=== PATIENT | female | born 1990 | race American Indian/Alaskan Native ===

== ENCOUNTER 2024-12-01 00:55 | Emergency (ER) | payer MEDICAID, SELFPAY ==
[2024-12-01] VITALS (8 sets, daily range): BP systolic 95–118; BP diastolic 66–89; PULSE 86–126; RESP 18; TEMP 36.7–37.2; O2SAT 95–100; BMI 22.7
--- NOTE | 2024-12-01 01:03 | XR_ITS ---
Examination: CT chest with intravenous contrast CT abdomen with intravenous contrast CT pelvis with intravenous contrast 2-D coronal and sagittal reconstructions Time of exam: December 01, 2024 at 0604 hrs. Indications: Coughing congestion abdominal pain shortness of breath fever this week CTDI: vol (mGy) : 7.1 DLP: (mGycm): 502 Technique: Multiple axial images of the chest, abdomen and pelvis with intravenous contrast, 3.0 mm slice thickness. Images obtained post intravenous injection Isovue 370 60 cc. 2-D sagittal and coronal reconstructions. Low dose protocols were performed. One or more of the following dose reduction techniques were used; automated exposure control, adjustment of the mA and/or KV according to patient size, use of iterative reconstruction technique. Findings: No thoracic aortic aneurysmal dilatation Main pulmonary artery segment 33 mm No paratracheal tracheobronchial or bronchopulmonary adenopathy No pneumonia or pulmonary edema No pleural disease No focal liver lesions or biliary tract dilatation Distended gallbladder Spleen is not enlarged Fluid distended stomach No pancreatic mass Mild right hydronephrosis with wall thickening of the pelvicalyceal system and proximal ureter There is marked patient motion which degrades image quality in the abdomen No bowel obstruction Large soft tissue infection right flank extending to the right hip with gross bone destruction involving the right femoral head and acetabulum as well as osteomyelitis right ischium with adjacent soft tissue ulcer Soft tissue infection again noted posterior to the sacrum and coccyx with bone destruction distal sacrum and coccygeal segments This alteration infection extends to the posterior margin of the anus Diffuse soft tissue infection also involves the left ischium, osteomyelitis Marked thickening of urinary bladder wall Again noted bone destruction involving T12 and L1 Impression: No pneumonia or pulmonary edema or pleural disease Distended gallbladder, recommend gallbladder sonography follow-up Right pyelonephritis Again noted large soft tissue foci of infection posterior and lateral to the right hip and posterior to the right ischium with marked osteomyelitis right femoral head right acetabulum right ischium Again noted soft tissue ulcer and infection posterior to the sacrum extending to the posterior margin of the anus with destruction distal sacrum and coccygeal segments and osteomyelitis left ischium Again noted bone destruction T12-L1 consistent with osteomyelitis
[2024-12-01 02:27] LABS: Lactate (Lactic Acid) 1.2 mMol/L (0.4-2.0)
[2024-12-01 02:28] LABS: Basophils % (Auto) 1 % (0-2.5); Eosinophils # (Auto) 0.3 Thou/mm3 (0.0-0.5); Eosinophils % (Auto) 4 % (0-10); Hematocrit 31.1 % (36.0-46.0); Hemoglobin 9.7 g/dL (12.0-16.0); Immature Granulocytes % (Auto) 0 % (0-0); Immature Granulocytes Auto 0.01 Thou/mm3 (0.00-0.00); Lymphocytes # (Auto) 2.3 Thou/mm3 (1.0-4.8); Lymphocytes % (Auto) 31 % (10-50); Mean Corpuscular HGB Conc 31.2 g/dl (31.0-37.0); Mean Corpuscular Volume 74 fL (80-100); Monocytes # (Auto) 0.4 Thou/mm3 (0.0-0.8); Monocytes % (Auto) 6 % (0-12); Neutrophils # (Auto) 4.4 Thou/mm3 (1.8-7.7); Neutrophils % (Auto) 59 % (37-80); Nucleated Red Blood Cell % 0 /100 WBC (0); Platelet Count 661 Thou/mm3 (140-440); RDW Standard Deviation 50.7 fL (36.4-46.3); Red Blood Count 4.22 Miln/mm3 (4.00-5.20); White Blood Count 7.5 Thou/mm3 (3.6-11.0)
[2024-12-01] MEDS: ONDANSETRON INJ 2 MG/ML INJ 2 ML 4 MG IV (02:48)
[2024-12-01] MEDS: MORPHINE SULF INJ 10 MG/ML VIAL 4 MG IVP (02:49)
[2024-12-01] MEDS: KETOROLAC INJ 30 MG/ML VIAL IVP ×2 (02:50→10:33)
[2024-12-01] MEDS: SODIUM CHLORIDE 0.9% 1000 ML 1,000 ML 999 ML IV (02:50)
--- NOTE | 2024-12-01 03:18 | PD.EDFEVER ---
ED Fever RME/HPI General Chief Complaint: Fever Stated Complaint: WOUND INFECTION, FEVER Time Seen by Provider: 12/01/24 01:30 Arrival date/time: 12/01/24 00:55 RME / HPI RME / HPI Narrative: This section includes all my notes and documentations, including HPI, PE, and ED course. Brent Antunez MD HPI: 34-year-old female with paraplegia presents with fever (over 104 at home) and worsening pressure ulcers with redness and warmth with chills and bodyaches and malaise. No cough or congestion. No chest pain or shortness of breath. No other complaints. ROS: All negative except as documented in HPI. Physical Exam: General: Alert and oriented. No acute distress. Eyes: Conjunctivae and lids clear. ENT: No nasal congestion. Pharynx normal. Tympanic membrane normal bilaterally. Neck: Supple. Heart: Sinus tachycardia noted. Lungs: No respiratory distress. Good air movement. No rhonchi, wheezing, rales. Abdomen: Soft and nontender. Legs: No clubbing, cyanosis, edema. Skin: Warm and dry. Multiple decubitus ulcers noted in the sacral and hip areas, varying size and shape and depth. With erythema and edema and calor. Neuro: Alert and oriented X 3. Complete diagnostic tests pending. Treatment here included IV fluid and oral KCl and Rocephin and Vancomycin. At 6 AM on 12/01/2024, the care of the patient was transferred to Dr. Chong. Brent Antunez MD Related Data Home Medications ?Medication ?Instructions ?Recorded ?Confirmed doxycycline hyclate 100 mg capsule 100 mg PO BID 04/23/24 04/23/24 Previous Rx's ?Medication ?Instructions ?Recorded levofloxacin 750 mg tablet 750 mg PO QDAY #7 tabs 04/27/24 cephalexin 500 mg capsule 500 mg PO TID #21 caps 08/22/24 Allergies Allergy/AdvReac Type Severity Reaction Status Date / Time latex Allergy Severe Blister Verified 12/01/24 01:44 Sulfa (Sulfonamide Allergy Severe Rash Verified 12/01/24 01:44 Antibiotics) Course Quality Measures none Orders Category Date Time Status Bedside COVID-19 Antigen Test NOW Care 12/01/24 01:02 Active Bedside Influenza A&B Antigen Test NOW Care 12/01/24 01:[address] Screening NOW Care 12/01/24 01:03 Active Saline [Insert IV] NOW Care 12/01/24 01:02 Active Straight [In and Out Catheter] X1 Care 12/01/24 01:[address] chest abdomen pelvis w Stat Exams 12/01/24 01:03 Ordered Blood Culture (Lab) Stat Lab 12/01/24 02:47 Received CBC Stat Lab 12/01/24 02:00 Completed CMP [Comprehensive Metabolic Panel] Stat Lab 12/01/24 02:00 Completed CRP [C-Reactive Protein] Stat Lab 12/01/24 02:00 Completed ESR [Sed Rate (ESR)] Stat Lab 12/01/24 02:00 Completed HCG Qualitative,Urine Stat Lab 12/01/24 04:28 Completed HCG,Qualitative Serum Stat Lab 12/01/24 02:00 Completed Lactate (Lactic Acid) Stat Lab 12/01/24 02:00 Completed Magnesium Stat Lab 12/01/24 02:00 Completed Procalcitonin Stat Lab 12/01/24 02:00 Completed TSH [Thyroid Stimulating Hormone] Stat Lab 12/01/24 02:00 Completed Troponin I Stat Lab 12/01/24 02:00 Completed UA, C/S IF [Urinalysis, C/S if Indicated] Stat Lab 12/01/24 04:28 Completed Urine Culture Stat Lab 12/01/24 04:28 Received KCL 10% Liq UDC 15 ML Med 12/01/24 03:44 Discontinued 40 meq PO X1 ONE Ketorolac Inj [Toradol Inj] Med 12/01/24 01:02 Discontinued 30 mg IVP X1 ONE Lidocaine Jelly 2% Urojet [Xylocaine Jelly 2% Urojet] Med 12/01/24 04:12 Discontinued See Dose Instructions TOP X1 ONE Morphine Inj Med 12/01/24 01:02 Discontinued 4 mg IVP X1 ONE Ondansetron Inj [Zofran Inj] Med 12/01/24 01:02 Discontinued 4 mg IV X1 ONE Sodium Chloride 0.9% 1000 ml [Ns] 1,000 ml Med 12/01/24 01:02 Discontinued IV 999 mls/hr Vancomycin Inj 2,000 mg Med 12/01/24 04:10 Active Sodium Chloride 0.9% 500 ml [Ns] 500 ml IV X1 cefTRIAXone [Rocephin] Med 12/01/24 04:29 Discontinued 1,000 mg .ROUTE .STK-MED ONE cefTRIAXone [Rocephin] 1,000 mg Med 12/01/24 04:09 Discontinued Sodium Chloride 0.9% (Partial) [NS (Partial)] 50 ml IV STAT cefTRIAXone [Rocephin] 1,000 mg Med 12/01/24 04:17 Discontinued Sodium Chloride 0.9% (Partial) [NS (Partial)] 50 ml IV X1 Vital Signs Vital signs: Vital Signs Blood Pressure 109/66 12/01/24 01:35 Pulse Oximetry (%) 100 12/01/24 01:35 Fever Patient data External records reviewed:: [facility] previous records and EMS form Clinical information provided by:: patient, EMS and spouse Social determinants that could affect healthcare access:: substance use Patient has the following chronic illnesses:: Paraplegia How is presenting disease/condition affected by chronic disease/condition?: exacerbated by Evaluation data The following diagnostics were reviewed and interpreted by me:: lab results and radiology exam(s) Lab and/or radiology exams considered but not ordered:: None Interpretation Summary: Complete diagnostics pending Medications / Prescriptions Medications or Prescriptions considered but not ordered:: None Medication administrations:: Medication Administration History Vancomycin HCl 2,000 mg/ (Sodium Chloride) 500 mls @ 150 mls/hr IV X1 ONE Stop: 12/01/24 07:29 Last Admin: 12/01/24 04:15 Dose: 150 mls/hr Documented By: ADOLPH Discontinued Medications Ceftriaxone Sodium (Ceftriaxone Sod Inj 1,000 Mg Vial) Confirm Administered Dose 1,000 mg .ROUTE .STK-MED ONE Stop: 12/01/24 04:30 Last Admin: 12/01/24 05:01 Dose: Not Given Documented By: ADOLPH Non-Admin Reason: Duplicate Medication on eMAR Sodium Chloride (Ns) 1,000 mls @ 999 mls/hr IV .Q1H1M ONE Stop: 12/01/24 02:02 Last Infusion: 12/01/24 04:33 Dose: Infused Documented By: Admin: 12/01/24 02:50 Dose: 999 mls/hr Documented By: DIANE Ceftriaxone Sodium 1,000 mg/ (Sodium Chloride) 50 mls @ 100 mls/hr IV STAT STA Stop: 12/01/24 04:38 Last Admin: 12/01/24 04:33 Dose: Not Given Documented By: ISIDORO Non-Admin Reason: Discontinued Ceftriaxone Sodium 1,000 mg/ (Sodium Chloride) 50 mls @ 100 mls/hr IV X1 ONE Stop: 12/01/24 04:46 Ketorolac Tromethamine (Ketorolac Inj 30 Mg/Ml Vial) 30 mg IVP X1 ONE Stop: 12/01/24 01:03 Last Admin: 12/01/24 02:50 Dose: 30 mg Documented By: DIANE Lidocaine HCl (Lidocaine Jelly 2% (Urojet) 10 Ml Tube) 0 ml TOP X1 ONE Stop: 12/01/24 04:13 Last Admin: 12/01/24 04:15 Dose: 10 ml Documented By: ADOLPH Morphine Sulfate (Morphine Sulf Inj 10 Mg/Ml Vial) 4 mg IVP X1 ONE Stop: 12/01/24 01:03 Last Admin: 12/01/24 02:49 Dose: 4 mg Documented By: DIANE Ondansetron HCl (Ondansetron Inj 2 Mg/Ml Inj 2 Ml) 4 mg IV X1 ONE; Protocol Stop: 12/01/24 01:03 Last Admin: 12/01/24 02:48 Dose: 4 mg Documented By: DIANE Potassium Chloride (Potassium Chloride 10% 20 Meq/15 Ml Udc) 40 meq PO X1 ONE Stop: 12/01/24 03:45 Last Admin: 12/01/24 04:15 Dose: 40 meq Documented By: ADOLPH Treatment here included IV fluid and Rocephin and vancomycin and oral KCl. Consultations Consultation(s) initiated? (list below): No Diagnosis Fever Differential Diagnosis: cellulitis, fever of unknown origin, community acquired pneumonia, pyelonephritis, sepsis and other (Osteomyelitis) Most likely diagnosis given after review of the tests above:: Complete diagnostics pending Admission Indicated Admission indicated?: not indicated Explain why admission is indicated or not indicated:: Complete diagnostics pending Admission Request Was there a request for admission?: No Disposition Plan Disposition Plan: other (specify) (Care of the patient was transferred to Dr. Chong) Discharge Plan Prescriptions/Referrals Prescriptions/Med Rec: No Action doxycycline hyclate 100 mg capsule 100 mg PO BID levofloxacin 750 mg tablet 750 mg PO QDAY Qty: 7 0RF cephalexin 500 mg capsule 500 mg PO TID Qty: 21 0RF Referrals: Emanuel Watson MD [Primary Care Provider] - In 1 week Problem List Clinical Impression: Decubitus ulcers, UTI (urinary tract infection) Patient/Caregiver Discharge Instructions Print Language: Montserratian
[2024-12-01 03:22] LABS: Sed Rate (ESR) 70 mm/hr (0-20)
[2024-12-01 03:39] LABS: Alanine Aminotransferase 11 U/L (10-49); Albumin, Serum 3.3 gm/dL (3.5-5.0); Albumin/Globulin Ratio 0.8 (1.2-2.2); Alkaline Phosphatase 157 U/L (46-116); Anion Gap 6 (7-16); Aspartate Amino Transferase 17 U/L (0-34); BUN/Creatinine Ratio 30 Ratio (12-20); Bilirubin,Total 0.2 mg/dL (0.3-1.2); Blood Urea Nitrogen 9 mg/dL (9-23); C-Reactive Protein 4.8 mg/dL (0.0-0.9); Calcium 8.4 mg/dL (8.3-10.6); Carbon Dioxide 28.7 mMol/L (20.0-31.0); Chloride 102 mMol/L (98-107); Creatinine (Component) 0.3 mg/dL (0.6-1.3); Estimated Creatinine Clearance 259.4 mL/min (>60); Globulin 4.2 gm/dL (2.3-3.5); Glucose 81 mg/dL (74-106); Magnesium 1.8 mg/dL (1.6-2.6); Osmolality,Calculated 271 (275-295); Potassium 3.2 mMol/L (3.4-5.1); Procalcitonin 0.09 ng/ml (0.0-0.49); Sodium 137 mMol/L (136-145); Thyroid Stimulating Hormone 1.72 uIU/mL (0.55-4.78); Total Protein 7.5 gm/dL (5.7-8.2); Troponin I < 0.002 ng/mL (0.0-0.045); eGFR > 60 See Note
[2024-12-01 03:54] LABS: HCG,Qualitative Serum Negative
[2024-12-01] MEDS: LIDOCAINE JELLY 2% (Urojet) 10 ML TUBE TOP (04:15)
[2024-12-01] MEDS: Vancomycin Inj 2,000 MG in SODIUM CHLORIDE 0.9% 500 ML 500 ML 150 MG IV (04:15)
[2024-12-01] MEDS: POTASSIUM CHLORIDE 10% 20 MEQ/15 ML UDC 40 MEQ PO (04:15)
[2024-12-01 05:04] LABS: Collection Type, Urine Clean Catch; Squamous Epithelial Cell,Urine 0 /hpf (0-5)
[2024-12-01 05:21] LABS: Bilirubin,Urine Negative (Negative); Blood,Urine 1+ (Negative); Color,Urine Yellow (Lt Yel-Yel); Glucose, Urine Negative (Negative); Ketones,Urine Negative (Negative); Leukocyte Esterase,Urine Positive (Negative); Nitrite,Urine Positive (Negative); Protein,Urine 2+ (Neg - Trace); RBC,Urine 55 /hpf (0-3); Specific Gravity,Urine 1.025 (1.001-1.035); WBC,Urine 684 /hpf (0-5)
[2024-12-01 05:22] LABS: Clarity,Urine Turbid (Clear/Hazy); Culture Indicated,Urine Yes
[2024-12-01 05:25] LABS: HCG Qualitative,Urine Negative
--- NOTE | 2024-12-01 07:35 | PC.NURSE ---
pt resting in bed in no apparent distress at this time. pt states that she has a home health nurse that comes to her house to take care of her wounds and states that she does not want to be admitted. informed dr yung. dr yung will come to speak with pt
--- NOTE | 2024-12-01 07:55 | PD.EDADDENDU ---
Emergency Room Addendum <Staci Ponce - Last Filed: 12/01/24 08:33> Addendum Narrative: 0600: Care assumed from Dr. Antunez, the previous shift emergency physician. I will assume the care of the patient at this time, pending CT chest/abdomen/pelvis and final disposition. Please refer to the emergency department record for history and examination from initial visit.? EMS notes reviewed by me. Nursing notes reviewed by me. Vital signs reviewed by me. [place] [facility] medical records reviewed by me. RADIOLOGY Ordering Physician: Brent Antunez MD Date of Service: 12/01/24 Procedure(s): CT chest abdomen pelvis w Accession Number(s): [id number] cc: Emanuel Watson MD; Brent Antunez MD; Jose D Lowery MD~ Examination: CT chest with intravenous contrast CT abdomen with intravenous contrast CT pelvis with intravenous contrast 2-D coronal and sagittal reconstructions Time of exam: December 01, 2024 at 0604 hrs. Indications: Coughing congestion abdominal pain shortness of breath fever this week CTDI: vol (mGy) : 7.1 DLP: (mGycm): 502 Technique: Multiple axial images of the chest, abdomen and pelvis with intravenous contrast, 3.0 mm slice thickness. Images obtained post intravenous injection Isovue 370 60 cc. 2-D sagittal and coronal reconstructions. Low dose protocols were performed. One or more of the following dose reduction techniques were used; automated exposure control, adjustment of the mA and/or KV according to patient size, use of iterative reconstruction technique. Findings: No thoracic aortic aneurysmal dilatation Main pulmonary artery segment 33 mm No paratracheal tracheobronchial or bronchopulmonary adenopathy No pneumonia or pulmonary edema No pleural disease No focal liver lesions or biliary tract dilatation Distended gallbladder Spleen is not enlarged Fluid distended stomach No pancreatic mass Mild right hydronephrosis with wall thickening of the pelvicalyceal system and proximal ureter There is marked patient motion which degrades image quality in the abdomen No bowel obstruction Large soft tissue infection right flank extending to the right hip with gross bone destruction involving the right femoral head and acetabulum as well as osteomyelitis right ischium with adjacent soft tissue ulcer Soft tissue infection again noted posterior to the sacrum and coccyx with bone destruction distal sacrum and coccygeal segments This alteration infection extends to the posterior margin of the anus Diffuse soft tissue infection also involves the left ischium, osteomyelitis Marked thickening of urinary bladder wall Again noted bone destruction involving T12 and L1 Impression: No pneumonia or pulmonary edema or pleural disease Distended gallbladder, recommend gallbladder sonography follow-up Right pyelonephritis Again noted large soft tissue foci of infection posterior and lateral to the right hip and posterior to the right ischium with marked osteomyelitis right femoral head right acetabulum right ischium Again noted soft tissue ulcer and infection posterior to the sacrum extending to the posterior margin of the anus with destruction distal sacrum and coccygeal segments and osteomyelitis left ischium Again noted bone destruction T12-L1 consistent with osteomyelitis Dictated By: Jose D Lowery MD Signed By: <Electronically signed by Jose D Lowery MD in [place]>12/01/24 0730 <Erik Chong MD - Last Filed: 12/01/24 08:33> Addendum Narrative: 0600: Care assumed from Dr. Antunez, the previous shift emergency physician. I will assume the care of the patient at this time, pending CT chest/abdomen/pelvis and final disposition. Please refer to the emergency department record for history and examination from initial visit.? EMS notes reviewed by me. Nursing notes reviewed by me. Vital signs reviewed by me. [facility] medical records reviewed by me. RADIOLOGY Ordering Physician: Brent Antunez MD Date of Service: 12/01/24 Procedure(s): CT chest abdomen pelvis w Accession Number(s): [id number] cc: Emanuel Watson MD; Brent Antuenz MD; Jose D Lowery MD~ Examination: CT chest with intravenous contrast CT abdomen with intravenous contrast CT pelvis with intravenous contrast 2-D coronal and sagittal reconstructions Time of exam: December 01, 2024 at 0604 hrs. Indications: Coughing congestion abdominal pain shortness of breath fever this week CTDI: vol (mGy) : 7.1 DLP: (mGycm): 502 Technique: Multiple axial images of the chest, abdomen and pelvis with intravenous contrast, 3.0 mm slice thickness. Images obtained post intravenous injection Isovue 370 60 cc. 2-D sagittal and coronal reconstructions. Low dose protocols were performed. One or more of the following dose reduction techniques were used; automated exposure control, adjustment of the mA and/or KV according to patient size, use of iterative reconstruction technique. Findings: No thoracic aortic aneurysmal dilatation Main pulmonary artery segment 33 mm No paratracheal tracheobronchial or bronchopulmonary adenopathy No pneumonia or pulmonary edema No pleural disease No focal liver lesions or biliary tract dilatation Distended gallbladder Spleen is not enlarged Fluid distended stomach No pancreatic mass Mild right hydronephrosis with wall thickening of the pelvicalyceal system and proximal ureter There is marked patient motion which degrades image quality in the abdomen No bowel obstruction Large soft tissue infection right flank extending to the right hip with gross bone destruction involving the right femoral head and acetabulum as well as osteomyelitis right ischium with adjacent soft tissue ulcer Soft tissue infection again noted posterior to the sacrum and coccyx with bone destruction distal sacrum and coccygeal segments This alteration infection extends to the posterior margin of the anus Diffuse soft tissue infection also involves the left ischium, osteomyelitis Marked thickening of urinary bladder wall Again noted bone destruction involving T12 and L1 Impression: No pneumonia or pulmonary edema or pleural disease Distended gallbladder, recommend gallbladder sonography follow-up Right pyelonephritis Again noted large soft tissue foci of infection posterior and lateral to the right hip and posterior to the right ischium with marked osteomyelitis right femoral head right acetabulum right ischium Again noted soft tissue ulcer and infection posterior to the sacrum extending to the posterior margin of the anus with destruction distal sacrum and coccygeal segments and osteomyelitis left ischium Again noted bone destruction T12-L1 consistent with osteomyelitis Dictated By: Jose D Lowery MD Signed By: <Electronically signed by Jose D Lowery MD in [place]>12/01/24 0730 The patient was signed out to me from Dr. Antunez at 6:[address] chest abdomen and pelvic. And CT result is posted above. Dr. Antunez, my predecessor has put the patient on IV antibiotics. I look at the CT abdomen myself, I do not see any significant stranding around the kidneys that may signify pyelonephritis. In fact the UA showing 694 WBC but no bacteria. She has an indwelling Madrigal that was 3 months old. The patient request that we change the Madrigal for her, change dressing on her decubitus ulcers, put on doxycycline that she used to take. She absolutely and adamantly deny admission. She just want to go back to the shelter. And she intended to sign out AGAINST MEDICAL ADVICE. She is alert awake oriented x 4 GCS of 15. Diagnosis: AMA Chronic decubitus ulcers with osteomyelitis of adjacent bones Indwelling Madrigal Condition: Stable I will write her prescription for doxycycline. The patient will need to be follow-up with wound care. Wound care referral can be done by her PMD. The patient is signed out AGAINST MEDICAL ADVICE.
[2024-12-01] MEDS: cefTRIAXone 1,000 MG in SODIUM CHLORIDE 0.9% (P) 50 ML 100 MG IV (10:35)
--- NOTE | 2024-12-01 10:40 | PC.NURSE ---
wounds to bilateral hip and coccyx area cleaned and new dressing applied. wound to left foot heal area cleaned and new dressing applied
== END 2024-12-01 11:40 | disposition left against medical advice (07) ==
PROVIDERS: Emergency Medicine; Emergency Provider Emergency Medicine; PCP Family Medicine
DX: L89.209 Pressure ulcer of unspecified hip, unspecified stage (principal); L89.159 Pressure ulcer of sacral region, unspecified stage; N39.0 Urinary tract infection, site not specified; Z53.29 Procedure and treatment not carried out because of patient's decision for other reasons; M86.9 Osteomyelitis, unspecified
CPT/HCPCS: 51702; 36415; 71260; 74177; 80053; 81001; 81025; 83605; 83735; 84145; 84443; 84484; 84703; 85025; 85652; 86140; 87040; 87077; 87086; 87186; 87400; 87811; 96365; 96366; 96367; 96375; 99285; A4649; J0696; J1885; J2270; J2405; J3371; J7030; J7040; J7050; Q9967; A9270

== ENCOUNTER 2024-12-29 00:20 | Emergency (ER) | payer MEDICAID, SELFPAY ==
[2024-12-29 00:26] VITALS: BMI 22.7
[2024-12-29 00:32] VITALS: BP 109/77; PULSE 126; RESP 20; TEMP 38.2; O2SAT 100
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
[2024-12-29 01:30] LABS: Lactate (Lactic Acid) 1.9 mMol/L (0.4-2.0)
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
[2024-12-29 01:31] VITALS: TEMP 38.2
[2024-12-29] MEDS: ACETAMINOPHEN 500 MG TABLET 1000 MG PO (01:31)
[2024-12-29] MEDS: SODIUM CHLORIDE 0.9% 1000 ML 1,000 ML 999 ML IV (01:32)
[2024-12-29 01:34] LABS: Basophils % (Auto) 0 % (0-2.5); Eosinophils # (Auto) 0.2 Thou/mm3 (0.0-0.5); Eosinophils % (Auto) 2 % (0-10); Hematocrit 30.6 % (36.0-46.0); Hemoglobin 9.2 g/dL (12.0-16.0); Immature Granulocytes % (Auto) 0 % (0-0); Immature Granulocytes Auto 0.05 Thou/mm3 (0.00-0.00); Lymphocytes # (Auto) 1.6 Thou/mm3 (1.0-4.8); Lymphocytes % (Auto) 14 % (10-50); Mean Corpuscular HGB Conc 30.1 g/dl (31.0-37.0); Mean Corpuscular Hemoglobin 21.7 pg (25.0-35.0); Mean Corpuscular Volume 72 fL (80-100); Monocytes # (Auto) 0.7 Thou/mm3 (0.0-0.8); Monocytes % (Auto) 6 % (0-12); Neutrophils # (Auto) 9.1 Thou/mm3 (1.8-7.7); Neutrophils % (Auto) 78 % (37-80); Nucleated Red Blood Cell % 0 /100 WBC (0); Platelet Count 767 Thou/mm3 (140-440); RDW Standard Deviation 48.6 fL (36.4-46.3); Red Blood Count 4.23 Miln/mm3 (4.00-5.20); White Blood Count 11.7 Thou/mm3 (3.6-11.0)
[2024-12-29 01:52] VITALS: PULSE 125; PULSE 126; RESP 100; RESP 20
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
[2024-12-29 02:05] LABS: Alanine Aminotransferase 26 U/L (10-49); Albumin, Serum 3.3 gm/dL (3.5-5.0); Albumin/Globulin Ratio 0.7 (1.2-2.2); Alkaline Phosphatase 237 U/L (46-116); Anion Gap 7 (7-16); Aspartate Amino Transferase 38 U/L (0-34); BUN/Creatinine Ratio 18 Ratio (12-20); Bilirubin,Total 0.2 mg/dL (0.3-1.2); Blood Urea Nitrogen 11 mg/dL (9-23); Calcium 8.3 mg/dL (8.3-10.6); Calcium (Corrected) 8.9 mg/dL (8.5-10.1); Carbon Dioxide 25.8 mMol/L (20.0-31.0); Chloride 99 mMol/L (98-107); Creatinine (Component) 0.6 mg/dL (0.6-1.3); Estimated Creatinine Clearance 129.7 mL/min (>60); Globulin 4.9 gm/dL (2.3-3.5); Glucose 96 mg/dL (74-106); Osmolality,Calculated 263 (275-295); Potassium 4.1 mMol/L (3.4-5.1); Sodium 132 mMol/L (136-145); Total Protein 8.2 gm/dL (5.7-8.2); eGFR > 60 See Note
[2024-12-29 02:26] LABS: INR 1.1 (0.9-1.3); Partial Thromboplastin Time 29.4 Seconds (22.0-36.0); Prothrombin Time 12.1 Seconds (9.0-12.2)
[2024-12-29 02:30] LABS: B-Type Natriuretic Peptide 20 pg/mL (0-100)
[2024-12-29 02:31] LABS: LDH (Lactate Dehydrogenase) 283 U/L (120-246); Lipase 21 U/L (12-53); Magnesium 1.8 mg/dL (1.6-2.6); Phosphorous 4.5 mg/dL (2.4-5.1); Troponin I < 0.002 ng/mL (0.0-0.045)
[2024-12-29] MEDS: LIDOCAINE JELLY 2% (Urojet) 10 ML TUBE TOP (02:35)
[2024-12-29] MEDS: MORPHINE SULF INJ 10 MG/ML VIAL 4 MG IVP (03:03)
[2024-12-29] MEDS: ONDANSETRON INJ 2 MG/ML INJ 2 ML 4 MG IV (03:03)
[2024-12-29] MEDS: cefTRIAXone 1,000 MG in SODIUM CHLORIDE 0.9% (Popper) 50 ML 100 MG IV (03:03)
[2024-12-29] MEDS: SODIUM CHLORIDE 0.9% 1000 ML 1,848 ML 1848 ML IV (03:03)
[2024-12-29 03:13] VITALS: TEMP 36.9
[2024-12-29 03:15] VITALS: BP 108/71; PULSE 117; RESP 20; TEMP 36.9; O2SAT 99
[2024-12-29 03:58] LABS: Collection Type, Urine Catheter
[2024-12-29 04:22] LABS: Bilirubin,Urine Negative (Negative); Blood,Urine 1+ (Negative); Color,Urine Yellow (Lt Yel-Yel); Glucose, Urine Negative (Negative); Ketones,Urine Negative (Negative); Leukocyte Esterase,Urine Positive (Negative); Nitrite,Urine Positive (Negative); PH,Urine 6.5 (5.0-7.0); Protein,Urine 1+ (Neg - Trace); RBC,Urine 38 /hpf (0-3); Specific Gravity,Urine 1.017 (1.001-1.035); Squamous Epithelial Cell,Urine 1 /hpf (0-5); Urobilinogen,Urine Negative mg/dL (0.0-1.0); WBC,Urine 1144 /hpf (0-5)
[2024-12-29 04:26] LABS: Clarity,Urine Turbid (Clear/Hazy)
[2024-12-29 04:27] LABS: HCG Qualitative,Urine Negative
[2024-12-29 06:05] VITALS: BP 105/75; PULSE 94; RESP 18; TEMP 36.9; O2SAT 100
== END 2024-12-29 06:05 | disposition home or self-care (01) ==
PROVIDERS: Physician Assistant; Emergency Provider Emergency Medicine
DX: Z46.6 Encounter for fitting and adjustment of urinary device (principal); N39.0 Urinary tract infection, site not specified; I10 Essential (primary) hypertension; G82.20 Paraplegia, unspecified; N39.498 Other specified urinary incontinence
CPT/HCPCS: 51702; 36415; 80053; 81001; 81025; 83605; 83615; 83690; 83735; 83880; 84100; 84145; 84484; 85025; 85610; 85730; 87040; 87077; 87086; 87186; 96361; 96365; 96375; 99291; J0696; J2270; J2405; J7030; J7050; A9270

== ENCOUNTER 2025-01-13 03:15 | Inpatient (IN) | payer MEDICAID, SELFPAY ==
[2025-01-13] VITALS (12 sets, daily range): BP systolic 94–120; BP diastolic 60–85; PULSE 94–116; RESP 14–21; TEMP 36.1–37.3; O2SAT 97–100; BMI 22.7
--- NOTE | 2025-01-13 03:44 | PC.NURSE ---
pt arrives in her WC with her mother. appears lethargic.appears sedated. Pt Admits to using fentanyl today. States 6 hrs ago however pt is nodding. VS checked and are stable. bender machine Alys is aware.
--- NOTE | 2025-01-13 05:10 | PD.EDRME ---
Rapid Medical Screening Exam RME Arrival date/time: 01/13/25 03:15 34 year old female present to ED for c/o of worsen wounds on back I have greeted and performed a focused initial assessment of this patient. A comprehensive ED assessment and evaluation of the patient, analysis of all test results, and completion of the medical decision making process will be conducted by additional ED providers. Chief Complaint: Wound Recheck / Suture Removal Time Seen by Provider: 01/13/25 03:18 Vital signs: Vital Signs Temperature 99.2 F 01/13/25 03:42 Pulse Rate 97 01/13/25 03:42 Respiratory Rate 14 01/13/25 03:42 Blood Pressure 113/73 01/13/25 03:42 Pulse Oximetry (%) 100 01/13/25 03:42 Oxygen Delivery Method Room Air 01/13/25 03:42
[2025-01-13 05:44] LABS: Lactate (Lactic Acid) 0.7 mMol/L (0.4-2.0)
[2025-01-13 05:49] LABS: Basophils % (Auto) 1 % (0-2.5); Eosinophils # (Auto) 0.1 Thou/mm3 (0.0-0.5); Eosinophils % (Auto) 1 % (0-10); Hematocrit 26.6 % (36.0-46.0); Immature Granulocytes % (Auto) 0 % (0-0); Immature Granulocytes Auto 0.02 Thou/mm3 (0.00-0.00); Lymphocytes # (Auto) 1.3 Thou/mm3 (1.0-4.8); Lymphocytes % (Auto) 19 % (10-50); Mean Corpuscular HGB Conc 30.8 g/dl (31.0-37.0); Mean Corpuscular Volume 68 fL (80-100); Monocytes # (Auto) 0.4 Thou/mm3 (0.0-0.8); Monocytes % (Auto) 6 % (0-12); Neutrophils # (Auto) 5.3 Thou/mm3 (1.8-7.7); Neutrophils % (Auto) 74 % (37-80); Nucleated Red Blood Cell % 0 /100 WBC (0); Platelet Count 746 Thou/mm3 (140-440); RDW Standard Deviation 46.5 fL (36.4-46.3); White Blood Count 7.2 Thou/mm3 (3.6-11.0)
[2025-01-13 05:52] LABS: Hemoglobin 8.2 g/dL (12.0-16.0)
[2025-01-13 06:00] LABS: Sed Rate (ESR) 92 mm/hr (0-20)
[2025-01-13 06:11] LABS: Alanine Aminotransferase 12 U/L (10-49); Albumin, Serum 3.1 gm/dL (3.5-5.0); Albumin/Globulin Ratio 0.6 (1.2-2.2); Alkaline Phosphatase 303 U/L (46-116); Anion Gap 7 (7-16); Aspartate Amino Transferase 12 U/L (0-34); BUN/Creatinine Ratio 18 Ratio (12-20); Bilirubin,Total 0.3 mg/dL (0.3-1.2); Blood Urea Nitrogen 7 mg/dL (9-23); C-Reactive Protein 9.1 mg/dL (0.0-0.9); Calcium 8.3 mg/dL (8.3-10.6); Carbon Dioxide 26.9 mMol/L (20.0-31.0); Chloride 101 mMol/L (98-107); Creatinine (Component) 0.4 mg/dL (0.6-1.3); Globulin 4.9 gm/dL (2.3-3.5); Glucose 98 mg/dL (74-106); Osmolality,Calculated 268 (275-295); Potassium 3.6 mMol/L (3.4-5.1); Sodium 135 mMol/L (136-145); eGFR > 60 See Note
[2025-01-13] MEDS: ONDANSETRON INJ 2 MG/ML INJ 2 ML 4 MG IV ×2 (07:26→11:06)
[2025-01-13] MEDS: MORPHINE SULF INJ 10 MG/ML VIAL 5 MG IVP ×2 (07:27→11:07)
--- NOTE | 2025-01-13 07:30 | PC.NURSE ---
PT HERE WITH C/O PAIN TO CHRONIC DECUBITUS TO COCCYX/BUTTOCKS. ONE LARGE OPEN WOUND TO COCCYX/BUTTOCKS WITH 2 AREAS OF HOLES NOTED. NO DRAINAGE AT THIS TIME
[2025-01-13] MEDS: VANCOMYCIN/NS 1 GM IVPB 200 ML IV ×3 (07:33→22:53)
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
[2025-01-13] MEDS: RINGERS LACTATED 1000 ML 1,000 ML 75 ML IV (11:05)
[2025-01-13] MEDS: PANTOPRAZOLE INJ 40 MG VIAL IVP (11:08)
[2025-01-13] MEDS: PIPER/TAZO 3.375 GM PREMIX 3.375 GM/50 ML BAG IV (11:11)
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
[2025-01-13] MEDS: RINGERS LACTATED 1000 ML 1,000 ML 999 ML IV (11:12)
--- NOTE | 2025-01-13 11:15 | PC.NURSE ---
LAB IN TO DRAW BLOOD AND PT REFUSED
--- NOTE | 2025-01-13 11:55 | XR_ITS ---
Examination: Venous duplex lower extremity sonogram, bilateral. Date and time of exam: January 13, 2025 1227 hours INDICATIONS: Severe bilateral leg swelling and pain beginning 2 months ago, nonhealing leg ulcers Technique: Multiple sonographic images of the deep venous system have been obtained. B-mode/2-D grayscale imaging of vascular structures and Doppler spectral analysis (waveforms) and color performed Both legs are examined. Findings: Normal deep venous system right lower extremity Patient would not permit assessment left superficial femoral popliteal perineal posterior tibial veins IMPRESSION: Normal right lower extremity deep venous system Essentially nondiagnostic left lower extremity deep venous system evaluation
--- NOTE | 2025-01-13 11:56 | XR_ITS ---
Examination: Foot, left, 3 views Technique: AP, oblique, lateral views foot, 3 views Date and time of exam: January 13, 2025 at 1255 hours Comparison 06/21/2022 INDICATIONS: Redness swelling and pain involving the foot one month FINDINGS: Severe osteopenia Cortical bone destruction distal fifth metatarsal No pathologic fracture IMPRESSION: Osteomyelitis distal fifth metatarsal, consider MRI left foot without contrast follow-up
--- NOTE | 2025-01-13 12:15 | PC.NURSE ---
REFUSING LAB DRAW AGAIN
[2025-01-13] MEDS: HYDROmorphone INJ 2 MG/ML VIAL 1 MG IVP ×3 (12:16→22:58)
--- NOTE | 2025-01-13 12:51 | PC.NURSE ---
patient refused remaining of ultrasound due to pain
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
[2025-01-13] MEDS: CEFEPIME INJ 2 GM in SODIUM CHLORIDE 0.9% (Popper) 50 ML IV ×2 (15:47→21:26)
[2025-01-13] MEDS: DULoxetine HCL 30 MG CAPSULE PO (15:47)
[2025-01-13] MEDS: SOD HYPOCHLORITE 1/4 STR 473 ML BTL IRRIG (21:04)
[2025-01-13] MEDS: ASCORBIC ACID 250 MG TABLET 500 MG PO (21:04)
[2025-01-13] MEDS: MIDODRINE 5 MG TABLET 10 MG PO (21:22)
[2025-01-13 21:58] LABS: Collection Type, Urine Clean Catch; Squamous Epithelial Cell,Urine 0 /hpf (0-5)
[2025-01-13 22:16] LABS: Bacteria,Urine Rare; Bilirubin,Urine Negative (Negative); Blood,Urine Negative (Negative); Clarity,Urine Clear (Clear/Hazy); Color,Urine Lt-Yellow (Lt Yel-Yel); Glucose, Urine Negative (Negative); Ketones,Urine Negative (Negative); Leukocyte Esterase,Urine Positive (Negative); Nitrite,Urine Negative (Negative); PH,Urine 7.5 (5.0-7.0); Protein,Urine Negative (Neg - Trace); RBC,Urine 6 /hpf (0-3); Specific Gravity,Urine 1.014 (1.001-1.035); WBC,Urine 138 /hpf (0-5)
[2025-01-14] VITALS (20 sets, daily range): BP systolic 105–121; BP diastolic 66–87; PULSE 60–103; RESP 14–99; TEMP 35.7–36.7; O2SAT 97–100; BMI 22.7
[2025-01-14 03:41] LABS: Amphetamine/Methamp Scrn,U Positive (Negative); Barbiturate Screen,Urine Negative (Negative); Benzodiazepines Screen,Urine Negative (Negative); Benzoylecgonine Screen, Ur Negative (Negative); Fentanyl Screen,Urine Positive (Negative); Opiate Screen,Urine Positive (Negative); THC Screen,Urine Negative (Negative)
[2025-01-14] MEDS: CEFEPIME INJ 2 GM in SODIUM CHLORIDE 0.9% (Popper) 50 ML IV ×3 (05:06→21:00)
--- NOTE | 2025-01-14 05:08 | PC.NURSE ---
Notify MD of pt's BP 107/68 and HR of 99. said to hold all P.O meds.
[2025-01-14] MEDS: HYDROmorphone INJ 2 MG/ML VIAL 1 MG IVP ×4 (05:17→19:38)
[2025-01-14 06:21] LABS: Misc Send Out* See Sep Rpt
[2025-01-14 06:28] LABS: Basophils % (Auto) 0 % (0-2.5); Eosinophils # (Auto) 0.1 Thou/mm3 (0.0-0.5); Eosinophils % (Auto) 1 % (0-10); Hematocrit 27.8 % (36.0-46.0); Immature Granulocytes % (Auto) 0 % (0-0); Immature Granulocytes Auto 0.02 Thou/mm3 (0.00-0.00); Lymphocytes # (Auto) 1.6 Thou/mm3 (1.0-4.8); Lymphocytes % (Auto) 24 % (10-50); Mean Corpuscular HGB Conc 30.6 g/dl (31.0-37.0); Mean Corpuscular Hemoglobin 21.3 pg (25.0-35.0); Mean Corpuscular Volume 70 fL (80-100); Monocytes # (Auto) 0.3 Thou/mm3 (0.0-0.8); Monocytes % (Auto) 5 % (0-12); Neutrophils # (Auto) 4.5 Thou/mm3 (1.8-7.7); Neutrophils % (Auto) 69 % (37-80); Nucleated Red Blood Cell % 0 /100 WBC (0); Platelet Count 773 Thou/mm3 (140-440); RDW Standard Deviation 46.5 fL (36.4-46.3); White Blood Count 6.5 Thou/mm3 (3.6-11.0)
[2025-01-14 06:29] LABS: INR 1.1 (0.9-1.3); Partial Thromboplastin Time 30.8 Seconds (22.0-36.0)
[2025-01-14 06:35] LABS: Hemoglobin 8.5 g/dL (12.0-16.0)
[2025-01-14 07:01] LABS: Alanine Aminotransferase 8 U/L (10-49); Albumin/Globulin Ratio 0.7 (1.2-2.2); Alkaline Phosphatase 258 U/L (46-116); Anion Gap 7 (7-16); Aspartate Amino Transferase 11 U/L (0-34); BUN/Creatinine Ratio 20 Ratio (12-20); Bilirubin,Total 0.2 mg/dL (0.3-1.2); Blood Urea Nitrogen 6 mg/dL (9-23); Calcium 8.2 mg/dL (8.3-10.6); Carbon Dioxide 26.1 mMol/L (20.0-31.0); Chloride 104 mMol/L (98-107); Creatinine (Component) 0.3 mg/dL (0.6-1.3); Estimated Creatinine Clearance 259.4 mL/min (>60); Globulin 4.4 gm/dL (2.3-3.5); Glucose 101 mg/dL (74-106); Magnesium 1.9 mg/dL (1.6-2.6); Osmolality,Calculated 271 (275-295); Potassium 4.2 mMol/L (3.4-5.1); Procalcitonin 0.07 ng/ml (0.0-0.49); Sodium 137 mMol/L (136-145); Total Protein 7.4 gm/dL (5.7-8.2); Vancomycin,Trough 14.4 mcg/mL (5.0-10.0); eGFR > 60 See Note
[2025-01-14 07:05] LABS: D-Dimer 3280 ng/mL (<600)
[2025-01-14 07:09] LABS: Syphilis Reactive (Nonreactive)
[2025-01-14] MEDS: VANCOMYCIN/NS 1 GM IVPB 200 ML IV ×2 (07:09→22:10)
[2025-01-14 07:10] LABS: MHATP/TP-PA* See Sep Rpt
[2025-01-14] MEDS: PANTOPRAZOLE INJ 40 MG VIAL IVP (08:25)
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
--- NOTE | 2025-01-14 13:11 | PD.SUROPNT ---
Date of Procedure 01/14/25 Pre Op Diagnosis Sacral and gluteal decubitus ulcers Post Op Diagnosis Same Procedure Excisional debridement of sacral and gluteal decubitus ulcers Findings Chronic sacral and gluteal decubitus ulcers Procedure Description After discussion of risks and benefits, patient was brought to the operating room, placed in right lateral position with proper padding and MAC anesthesia was induced. She had already received preoperative antibiotics and was prepped and draped in the usual sterile fashion. After timeout the chronic sacral and gluteal decubitus ulcers were sharply debrided. Attention was first turned to the sacral wound where there was some fibrinous tissue towards the patient's left side, where there is an area of tunneling of the wound. The fibrinous tissue was sharply debrided with a curette to the level of bone and the wound was irrigated. Hemostasis was achieved with electrocautery.The left most gluteal wound was then examined and again fibrinous tissue was excised using a curette down to the level of bone. Of note there was a piece of metal hardware visible through this wound. More medially there was an additional left gluteal wound which was more superficial, and the fibrinous tissue was curetted to the level of subcutaneous tissue. Hemostasis was achieved with electrocautery. On the right gluteus there was a larger decubitus ulcer containing minimal fibrinous tissue at the lateral aspect which was sharply debrided to the level of subcutaneous tissue. Hemostasis was achieved with electrocautery. The wounds were packed with moistened gauze and covered with gauze and abdominal pads. Patient was awoken and brought to PACU in stable condition Pathology / specimen None Estimated Blood Loss 20 Surgeon Argentina Schafer MD Surgical Staff Operation Date: 01/14/25 12:00 Case Staff Anesthesiologist: Tomer Somers RN First Assistant: Terri Cabello
--- NOTE | 2025-01-14 13:12 | SUR.PHASEI ---
1312: Pt. AAOx4, vitals stable, breathing unlabored, no complaint of pain or nausea, dressing to buttocks CDI, no active bleed noted, report received from Adriane GARCIA, Zelda GARCIA and MD Somers.
--- NOTE | 2025-01-14 13:48 | SUR.PHASEI ---
1348: Pt. AAOx4, vitals stable, breathing unlabored, no complaint of pain or nausea, dressing to buttocks CDI, pts. right foot is bleeding slightly, notified Mariaa GARCIA. Gave report to Mariaa GARCIA prior to transfer to room 350.
[2025-01-14] MEDS: POLYETHYLENE GLYCOL 17 GM PACKET PO (14:19)
[2025-01-14] MEDS: FERROUS SULF 325 MG TABLET PO (14:19)
[2025-01-14] MEDS: MIDODRINE 5 MG TABLET 10 MG PO (14:20)
[2025-01-14] MEDS: DULoxetine HCL 30 MG CAPSULE PO (14:20)
[2025-01-14] MEDS: ZINC SULFATE 220 MG CAPSULE PO (14:20)
[2025-01-14] MEDS: ASCORBIC ACID 250 MG TABLET 500 MG PO (14:22)
--- NOTE | 2025-01-14 14:51 | PC.SS ---
SS met with patient at bedside for initial assessment, Patient asked SS to return at a later time, patient lethargic. SS attempted to contact life partner, left Voicemail with call back number.
[2025-01-14] MEDS: ONDANSETRON INJ 2 MG/ML INJ 2 ML 4 MG IV (19:46)
--- NOTE | 2025-01-15 00:10 | PC.NURSE ---
Patient is alert and oriented x4, attempted to do wound care on patient x2, Patient refused despite education being given regarding her wounds and possible side effects with refusing wound care. Patient continues to refuse wound care. Care continued.
[2025-01-15] MEDS: HYDROmorphone INJ 2 MG/ML VIAL 1 MG IVP ×2 (00:17→05:28)
[2025-01-15 04:00] VITALS: BP 121/73; PULSE 76; PULSE 82; RESP 16; TEMP 36.1; O2SAT 99
[2025-01-15 05:21] VITALS: BP 121/73; PULSE 76
--- NOTE | 2025-01-15 06:24 | PC.NURSE ---
Patient is alert and oriented x4, IV access to Left AC found leaking, IV was Discontinued, Attempted to reinsert New IV access but was unsuccessful, Patient refused another attempt at this time. Patient educated regarding importance of IV Access for ABX and Pain control, Patient verbalized understanding and continues to refuse IV access.
[2025-01-15 07:30] VITALS: PULSE 76
[2025-01-15] MEDS: HYDROcodone/APAP 5/325 TABLET 1 TAB PO (08:46)
[2025-01-15] MEDS: ZINC SULFATE 220 MG CAPSULE PO (09:15)
[2025-01-15] MEDS: ASCORBIC ACID 250 MG TABLET 500 MG PO (09:15)
[2025-01-15] MEDS: DULoxetine HCL 30 MG CAPSULE PO (09:15)
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
[2025-01-15] MEDS: SOD HYPOCHLORITE 1/4 STR 473 ML BTL IRRIG (09:20)
--- NOTE | 2025-01-15 10:23 | PC.SS ---
Patient Quyen Wayne is a 34-Year-old female admitted for Stage V Decubitus Ulcer. SS met with patient at bedside to review demographic information. Patient reports she lives at home with family. Patient is bed bound and utilizes a wheelchair, Patient needs assistance completing ADL's. Patient reports her Grandmother Henna Trujillo is surrogate decision maker [phone]. Patient reports her PCP is Dr. Emanuel Watson at [facility]. At time of discharge patient will return home, family will provide transportation. SS will see patient at a later time to provide recourses for Positive Toxicology report, Patient is open to resources. discharge plan: Home Next of Kin: Grand mother Henna Trujillo [phone]
--- NOTE | 2025-01-15 10:29 | PC.SS ---
SS follow up note; Patient is on IV ABX. Wound drainage yesterday, Possible discharge home today.
[2025-01-15 11:43] VITALS: PULSE 73
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
--- NOTE | 2025-01-15 14:07 | PC.NURSE ---
Pt verbalized wanting to leave hospital. Dr. Barrios contacted at 1340 regarding pts concern and MD was requested to come touch base with pt on plan of care. MD stated he was going to come talk to pt. Pt noted to have left floor at 1340 without signing AMA papers or allowing team to establish a discharge plan. Pt was disconnected from cardiac monitoring and no IV was established this shift. Dr. Barrios contacted and notified about pt leaving.
--- NOTE | 2025-01-15 14:23 | PC.NURSE ---
0730 this morning I spoke with pt and let her know that she needs a new IV to receive her IV antibiotics, she said she thinks she's going home today, I let her know we will check with the dr, [phone] Gilda Owens, wound RN and I performed wound care, Dr. Hernandez spoke with pt re: her need for IV antibiotics but pt was insistent on leaving, Dr. Hernandez said the dr team will be by to go over her care needs.
--- NOTE | 2025-01-15 14:26 | PC.NURSE ---
Attempted to contact pt through numbers on facesheet regarding notification of prescription sent to pharmacy of choice. No response.
== END 2025-01-15 13:40 | disposition left against medical advice (07) | DRG 364 ==
LOC: SERX 08:04 → SERHOLD 11:14 → S3NX 13:52
PROVIDERS: Physician Assistant; Surgery; Admitting Provider Student in an Organized Health Care Education/Training Program; Emergency Provider Emergency Medicine; PCP Family Medicine; Visit Provider Student in an Organized Health Care Education/Training Program
PROC: 0QB10ZZ Excision of Sacrum, Open Approach (ICD-10-PCS; principal; 2025-01-14 12:00)
DX: L89.154 Pressure ulcer of sacral region, stage 4 (principal); F15.90 Other stimulant use, unspecified, uncomplicated; N39.0 Urinary tract infection, site not specified; K59.09 Other constipation; D50.9 Iron deficiency anemia, unspecified; E88.09 Other disorders of plasma-protein metabolism, not elsewhere classified; D75.838 Other thrombocytosis; G82.20 Paraplegia, unspecified; L89.309 Pressure ulcer of unspecified buttock, unspecified stage; M86.8X7 Other osteomyelitis, ankle and foot; A53.9 Syphilis, unspecified; F11.10 Opioid abuse, uncomplicated; G89.29 Other chronic pain; I10 Essential (primary) hypertension; I95.89 Other hypotension; Z79.891 Long term (current) use of opiate analgesic; Z79.899 Other long term (current) drug therapy; Z87.440 Personal history of urinary (tract) infections; Z99.3 Dependence on wheelchair
CPT/HCPCS: 36415; 73630; 80053; 80202; 80307; 81001; 83605; 83735; 84100; 84145; 85025; 85379; 85610; 85652; 85730; 86140; 86780; 86850; 86900; 86901; 87040; 87081; 87086; 93225; 93970; 96365; 96366; 96375; 96376; 99285; A4217; A4649; J0692; J2250; J2270; J2371; J2405; J2470; J2543; J2704; J3010; J3370; J3490; J7050; J7120; A9270

== ENCOUNTER 2025-01-25 01:06 | Emergency (ER) | payer MEDICAID, SELFPAY ==
[2025-01-25 01:22] VITALS: BP 120/77; PULSE 119; RESP 18; TEMP 36.6; O2SAT 99; BMI 23.0
[2025-01-25] MEDS: LIDOCAINE JELLY 2% (Urojet) 10 ML TUBE TOP (01:46)
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
== END 2025-01-25 02:24 | disposition home or self-care (01) ==
LOC: SERX 02:31
PROVIDERS: Emergency Provider Emergency Medicine; PCP Family Medicine
DX: Z46.6 Encounter for fitting and adjustment of urinary device (principal); I10 Essential (primary) hypertension; R32 Unspecified urinary incontinence; G82.20 Paraplegia, unspecified
CPT/HCPCS: 51702; 99283

== ENCOUNTER 2025-05-29 06:22 | Emergency (ER) | payer MEDICAID, SELFPAY ==
[2025-05-29 06:33] VITALS: BP 110/69; PULSE 92; RESP 16; TEMP 37.1; O2SAT 99
--- NOTE | 2025-05-29 06:48 | PD.EDRME ---
Rapid Medical Screening Exam RME Arrival date/time: 05/29/25 06:22 35-year-old female with history of fentanyl and methamphetamine abuse who is paraplegic presents with concerns for urinary tract infection patient requesting to have her Madrigal catheter replaced Chief Complaint: General Adult/Misc Complain Time Seen by Provider: 05/29/25 06:24 Vital signs: Vital Signs Temperature 98.7 F 05/29/25 06:33 Pulse Rate 92 05/29/25 06:33 Respiratory Rate 16 05/29/25 06:33 Blood Pressure 110/69 05/29/25 06:33 Pulse Oximetry (%) 99 05/29/25 06:33 Oxygen Delivery Method Room Air 05/29/25 06:33
[2025-05-29 07:27] LABS: Basophils # (Auto) 0.0 Thou/mm3 (0.0-0.2); Basophils % (Auto) 0 % (0-2.5); Eosinophils # (Auto) 0.0 Thou/mm3 (0.0-0.5); Eosinophils % (Auto) 0 % (0-10); Hematocrit 27.8 % (36.0-46.0); Immature Granulocytes Auto 0.10 Thou/mm3 (0.00-0.00); Lymphocytes # (Auto) 2.2 Thou/mm3 (1.0-4.8); Lymphocytes % (Auto) 14 % (10-50); Mean Corpuscular HGB Conc 29.5 g/dl (31.0-37.0); Mean Corpuscular Hemoglobin 20.8 pg (25.0-35.0); Mean Corpuscular Volume 70 fL (80-100); Monocytes # (Auto) 0.7 Thou/mm3 (0.0-0.8); Monocytes % (Auto) 5 % (0-12); Neutrophils # (Auto) 12.4 Thou/mm3 (1.8-7.7); Neutrophils % (Auto) 80 % (37-80); Nucleated Red Blood Cell # 0.00 Thou/mm3 (0.00-0.00); Nucleated Red Blood Cell % 0 /100 WBC (0); Platelet Count 806 Thou/mm3 (140-440); RDW Standard Deviation 56.5 fL (36.4-46.3); Red Blood Count 3.95 Miln/mm3 (4.00-5.20); White Blood Count 15.5 Thou/mm3 (3.6-11.0)
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
[2025-05-29 07:43] LABS: Alanine Aminotransferase 16 U/L (10-49); Albumin, Serum 3.3 gm/dL (3.5-5.0); Albumin/Globulin Ratio 0.7 (1.2-2.2); Alkaline Phosphatase 249 U/L (46-116); Anion Gap 11 (7-16); Aspartate Amino Transferase 31 U/L (0-34); BUN/Creatinine Ratio 14 Ratio (12-20); Bilirubin,Total 0.3 mg/dL (0.3-1.2); Blood Urea Nitrogen 10 mg/dL (9-23); Calcium 8.6 mg/dL (8.3-10.6); Calcium (Corrected) 9.2 mg/dL (8.5-10.1); Carbon Dioxide 23.4 mMol/L (20.0-31.0); Chloride 96 mMol/L (98-107); Creatinine (Component) 0.7 mg/dL (0.6-1.3); Globulin 5.0 gm/dL (2.3-3.5); Glucose 103 mg/dL (74-106); Osmolality,Calculated 259 (275-295); Potassium 3.6 mMol/L (3.4-5.1); Sodium 130 mMol/L (136-145); Total Protein 8.3 gm/dL (5.7-8.2); eGFR > 60 See Note
[2025-05-29 07:44] LABS: Hemoglobin 8.2 g/dL (12.0-16.0)
[2025-05-29 07:51] VITALS: PULSE 116; RESP 19; TEMP 38.2; O2SAT 96
[2025-05-29] MEDS: LIDOCAINE JELLY 2% (Urojet) 10 ML TUBE TOP (08:15)
[2025-05-29 08:17] VITALS: BP 114/73; PULSE 115; RESP 18; TEMP 38.2; O2SAT 99
[2025-05-29] MEDS: cefTRIAXone/D5w 1gm IV premix 1 GM/50 ML BAG IV (08:37)
[2025-05-29] MEDS: SODIUM CHLORIDE 0.9% 1000 ML 1,000 ML 999 ML IV (08:38)
[2025-05-29 08:45] LABS: Collection Type, Urine Clean Catch; Squamous Epithelial Cell,Urine 0 /hpf (0-5)
[2025-05-29 08:51] LABS: Lactate (Lactic Acid) 1.9 mMol/L (0.4-2.0)
[2025-05-29 09:25] LABS: Amphetamine/Methamp Scrn,U Positive (Negative); Barbiturate Screen,Urine Negative (Negative); Benzodiazepines Screen,Urine Negative (Negative); Benzoylecgonine Screen, Ur Negative (Negative); Fentanyl Screen,Urine Positive (Negative); Opiate Screen,Urine Negative (Negative); THC Screen,Urine Negative (Negative)
[2025-05-29 09:31] LABS: HCG Qualitative,Urine Negative
[2025-05-29 09:38] LABS: Bacteria,Urine 3+; Bilirubin,Urine Negative (Negative); Blood,Urine 1+ (Negative); Clarity,Urine Turbid (Clear/Hazy); Color,Urine Yellow (Lt Yel-Yel); Glucose, Urine Negative (Negative); Ketones,Urine Negative (Negative); Leukocyte Esterase,Urine Positive (Negative); Nitrite,Urine Positive (Negative); PH,Urine 6.0 (5.0-7.0); Protein,Urine 1+ (Neg - Trace); RBC,Urine 13 /hpf (0-3); Specific Gravity,Urine 1.015 (1.001-1.035); Urobilinogen,Urine Negative mg/dL (0.0-1.0); WBC,Urine 73 /hpf (0-5)
--- NOTE | 2025-05-29 09:39 | PC.NURSE ---
Patient refused to have exam of bilateral hips by Dr. Arellano. Patient states she would like to go home, she just came in for IV antibiotics and to change her durán. Durán was changes, Urine clear with some sediment draining. Patient has dressed bilateral hip wounds as well as bilateral feet wounds. Patient is alert and oriented x4. Patient is paralyzed from the waist down.
[2025-05-29 09:40] LABS: Culture Indicated,Urine Yes
[2025-05-29 10:20] VITALS: BP 114/78; PULSE 113; RESP 20; O2SAT 99
== END 2025-05-29 10:21 | disposition left against medical advice (07) ==
PROVIDERS: Nurse Practitioner Primary Care; Emergency Provider Family Medicine; PCP Family Medicine
DX: A41.9 Sepsis, unspecified organism (principal); N12 Tubulo-interstitial nephritis, not specified as acute or chronic; Z46.6 Encounter for fitting and adjustment of urinary device; Z53.29 Procedure and treatment not carried out because of patient's decision for other reasons; G82.20 Paraplegia, unspecified; N31.9 Neuromuscular dysfunction of bladder, unspecified; I10 Essential (primary) hypertension
CPT/HCPCS: 51702; 36415; 80053; 80307; 81001; 81025; 83605; 85025; 87040; 87077; 87086; 87186; 96361; 96365; 99284; J0696; J7030

== ENCOUNTER 2025-06-11 23:27 | Emergency (ER) | payer MEDICAID, SELFPAY ==
[2025-06-11 23:28] VITALS: BMI 20.3
[2025-06-11 23:57] VITALS: BP 100/68; PULSE 108; RESP 18; TEMP 36.9; O2SAT 99
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
== END 2025-06-12 00:22 | disposition home or self-care (01) ==
LOC: SERX 06-12 00:20
PROVIDERS: Emergency Provider Emergency Medicine; PCP Family Medicine
DX: R82.71 Bacteriuria (principal); R82.90 Unspecified abnormal findings in urine; G82.20 Paraplegia, unspecified; I10 Essential (primary) hypertension; Z96.0 Presence of urogenital implants; N39.498 Other specified urinary incontinence
CPT/HCPCS: 99281

== ENCOUNTER 2025-06-25 06:56 | Emergency (ER) | payer MEDICAID, SELFPAY ==
[2025-06-25] VITALS (15 sets, daily range): BP systolic 90–111; BP diastolic 69–80; PULSE 101–132; RESP 12–19; TEMP 2.8–37.9; O2SAT 99–100; BMI 20.3
--- NOTE | 2025-06-25 07:15 | PD.EDRME ---
Rapid Medical Screening Exam RME Arrival date/time: 06/25/25 06:56 35-year-old female presents to the Emergency Department today requesting Madrigal catheter replacement patient noted to be tachycardic temp 100.2 Initial sepsis orders initiated Chief Complaint: General Adult/Misc Complain Time Seen by Provider: 06/25/25 07:08 Vital signs: Vital Signs Temperature 100.2 F 06/25/25 07:05 Pulse Rate 127 H 06/25/25 07:05 Respiratory Rate 19 06/25/25 07:05 Blood Pressure 107/75 06/25/25 07:05 Pulse Oximetry (%) 100 06/25/25 07:05 Oxygen Delivery Method Room Air 06/25/25 07:05
--- NOTE | 2025-06-25 07:20 | XR_ITS ---
Examination: AP chest single view Technique one AP portable semiupright chest single view Date and time: June 25, 2025, 0726 hrs., Comparison April 22, 2024 Indications: Fever sepsis today Findings: Normal heart size. No pneumonia or pulmonary edema. Orthopedic support rods thoracolumbar spine Impression: No active disease
--- NOTE | 2025-06-25 07:20 | EKG_ITS ---
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
[2025-06-25] MEDS: ACETAMINOPHEN 500 MG TABLET 1000 MG PO (07:43)
[2025-06-25] MEDS: cefTRIAXone/D5w 1gm IV premix 1 GM/50 ML BAG IV (07:43)
[2025-06-25] MEDS: SODIUM CHLORIDE 0.9% 1000 ML 1,000 ML 999 ML IV ×2 (07:43→10:22)
[2025-06-25] MEDS: LIDOCAINE JELLY 2% (Urojet) 10 ML TUBE TOP (07:50)
[2025-06-25 07:58] LABS: Lactate (Lactic Acid) 2.1 mMol/L (0.4-2.0)
[2025-06-25 08:02] LABS: Basophils # (Auto) 0.0 Thou/mm3 (0.0-0.2); Basophils % (Auto) 0 % (0-2.5); Eosinophils # (Auto) 0.3 Thou/mm3 (0.0-0.5); Eosinophils % (Auto) 2 % (0-10); Hematocrit 23.8 % (36.0-46.0); Immature Granulocytes Auto 0.13 Thou/mm3 (0.00-0.00); Lymphocytes # (Auto) 1.7 Thou/mm3 (1.0-4.8); Lymphocytes % (Auto) 12 % (10-50); Mean Corpuscular HGB Conc 28.2 g/dl (31.0-37.0); Mean Corpuscular Hemoglobin 19.9 pg (25.0-35.0); Mean Corpuscular Volume 71 fL (80-100); Monocytes # (Auto) 0.5 Thou/mm3 (0.0-0.8); Monocytes % (Auto) 4 % (0-12); Neutrophils # (Auto) 11.0 Thou/mm3 (1.8-7.7); Neutrophils % (Auto) 81 % (37-80); Nucleated Red Blood Cell # 0.00 Thou/mm3 (0.00-0.00); Nucleated Red Blood Cell % 0 /100 WBC (0); Platelet Count 794 Thou/mm3 (140-440); RDW Standard Deviation 54.0 fL (36.4-46.3); Red Blood Count 3.37 Miln/mm3 (4.00-5.20); White Blood Count 13.7 Thou/mm3 (3.6-11.0)
[2025-06-25 08:12] LABS: Hemoglobin 6.7 g/dL (12.0-16.0)
[2025-06-25 08:13] LABS: HCG,Qualitative Serum Negative
--- NOTE | 2025-06-25 08:16 | PC.NURSE ---
patient states she would not do the test for covid and flu at this time
[2025-06-25 08:35] LABS: Alanine Aminotransferase 14 U/L (10-49); Albumin, Serum 2.9 gm/dL (3.5-5.0); Albumin/Globulin Ratio 0.6 (1.2-2.2); Alkaline Phosphatase 309 U/L (46-116); Anion Gap 10 (7-16); Aspartate Amino Transferase 26 U/L (0-34); BUN/Creatinine Ratio 38 Ratio (12-20); Bilirubin,Total < 0.2 mg/dL (0.3-1.2); Blood Urea Nitrogen 15 mg/dL (9-23); Calcium 8.3 mg/dL (8.3-10.6); Calcium (Corrected) 9.2 mg/dL (8.5-10.1); Carbon Dioxide 24.4 mMol/L (20.0-31.0); Chloride 100 mMol/L (98-107); Creatinine (Component) 0.4 mg/dL (0.6-1.3); Estimated Creatinine Clearance 184.5 mL/min (>60); Globulin 4.7 gm/dL (2.3-3.5); Glucose 116 mg/dL (74-106); Osmolality,Calculated 270 (275-295); Potassium 3.8 mMol/L (3.4-5.1); Procalcitonin 0.12 ng/ml (0.0-0.49); Sodium 134 mMol/L (136-145); Total Protein 7.6 gm/dL (5.7-8.2); Troponin I < 0.002 ng/mL (0.0-0.045); eGFR > 60 See Note
[2025-06-25 08:37] LABS: Collection Type, Urine Clean Catch
[2025-06-25 08:42] LABS: INR 1.1 (0.9-1.3); Partial Thromboplastin Time 28.5 Seconds (22.0-36.0); Prothrombin Time 11.9 Seconds (9.0-12.2)
[2025-06-25 08:52] LABS: Bilirubin,Urine Negative (Negative); Blood,Urine 1+ (Negative); Clarity,Urine Turbid (Clear/Hazy); Color,Urine Lt-Yellow (Lt Yel-Yel); Glucose, Urine Negative (Negative); Ketones,Urine Negative (Negative); Leukocyte Esterase,Urine Positive (Negative); Nitrite,Urine Negative (Negative); PH,Urine 6.0 (5.0-7.0); Protein,Urine 1+ (Neg - Trace); RBC,Urine 39 /hpf (0-3); Specific Gravity,Urine 1.023 (1.001-1.035); Squamous Epithelial Cell,Urine < 1 /hpf (0-5); Urobilinogen,Urine Negative mg/dL (0.0-1.0); WBC,Urine 365 /hpf (0-5)
[2025-06-25 09:09] LABS: Amphetamine/Methamp Scrn,U Positive (Negative); Barbiturate Screen,Urine Negative (Negative); Benzodiazepines Screen,Urine Negative (Negative); Benzoylecgonine Screen, Ur Negative (Negative); Fentanyl Screen,Urine Positive (Negative); Opiate Screen,Urine Negative (Negative); THC Screen,Urine Negative (Negative)
[2025-06-25] MEDS: DOXYCYCLINE INJ 100 MG in SODIUM CHLORIDE 0.9% (POP) 100 ML IV (09:16)
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
--- NOTE | 2025-06-25 10:40 | PC.NURSE ---
estherallegramaricruz refused blood sugar check at this time, states she wont do wound care until she recieves more pain meds
[2025-06-25 10:56] LABS: Reflex Lactate? Y
[2025-06-25] MEDS: ONDANSETRON INJ 2 MG/ML INJ 2 ML 4 MG IVP (11:27)
[2025-06-25] MEDS: HYDROmorphone INJ 2 MG/ML VIAL 0.5 MG IVP ×2 (11:28→17:09)
[2025-06-25 12:26] LABS: Lactic Acid, 3 HR 1.4 mMol/L (0.4-2.0)
--- NOTE | 2025-06-25 15:53 | PC.NURSE ---
patient refusing treatment at this time for buttocks wounds
--- NOTE | 2025-06-25 19:18 | PC.NURSE ---
wound completed, blood finished transfussing, patient states she wants to leave AMA, welder 2nd shift nurse notified,and mD to be notified
== END 2025-06-25 19:54 | disposition left against medical advice (07) ==
PROVIDERS: Nurse Practitioner Primary Care; Emergency Provider Emergency Medicine
DX: A41.9 Sepsis, unspecified organism (principal); D64.9 Anemia, unspecified; N39.0 Urinary tract infection, site not specified; F15.10 Other stimulant abuse, uncomplicated; E87.20 Acidosis, unspecified; R00.0 Tachycardia, unspecified; Z53.29 Procedure and treatment not carried out because of patient's decision for other reasons
CPT/HCPCS: 36415; 36430; 71045; 80053; 80307; 81001; 83605; 84145; 84484; 84703; 85025; 85610; 85730; 86850; 86900; 86901; 86923; 87040; 87077; 87086; 87186; 93005; 96361; 96365; 96366; 96375; 96376; 99285; J0696; J1171; J2405; J3490; J7030; P9016; A9270

== ENCOUNTER 2025-07-27 17:37 | Inpatient (IN) | payer MEDICAID, SELFPAY ==
[2025-07-27 17:40] VITALS: BP 94/62; PULSE 106; RESP 19; TEMP 36.9; O2SAT 98
[2025-07-27 17:50] VITALS: PULSE 118; RESP 18; O2SAT 98; BMI 20.2
--- NOTE | 2025-07-27 18:04 | PC.NURSE ---
THIS RN ATTEMPTING TO CLEAN PT'S ULCERS TO COCCYX AND BILAT. BUTTOCKS AND BILAT. FEET AT THIS TIME; PER PT, I CAN'T- I NEED MEDS FIRST. IT HURTS TOO MUCH. MADE AWARE.
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
[2025-07-27 18:30] VITALS: BP 102/82; PULSE 67; RESP 19; TEMP 36.8; O2SAT 98
--- NOTE | 2025-07-27 18:41 | EKG_ITS ---
[facility] Test Date: 2025-07-27 Pat Name: ALISHA ALEMAN Department: Room: - Gender: Female Malt Specifications Control Assistant: : 1990 Requested By: Azeem Quiñones Order Number: [id number] Reading MD: Azeem Quiñones Measurements Intervals [place] Rate: 111 P: 48 CT: 118 QRS: 57 QRSD: 106 T: 47 QT: 331 QTc: 450 Interpretive Statements SINUS TACHYCARDIA WITH SHORT CT INTERVAL ABNORMAL RHYTHM ECG Compared to ECG 06/25/2025 09:37:[address] interval now present /store/S0/[id number]/ecg/[id number].pdf
[2025-07-27 18:53] LABS: Lactate (Lactic Acid) 1.1 mMol/L (0.4-2.0)
[2025-07-27] MEDS: SODIUM CHLORIDE 0.9% 1000 ML 1,848 ML 1848 ML IV (18:53)
[2025-07-27] MEDS: PIPER/TAZO 3.375 GM PREMIX 3.375 GM/50 ML BAG IV (18:56)
[2025-07-27 19:00] LABS: Basophils # (Auto) 0.0 Thou/mm3 (0.0-0.2); Basophils % (Auto) 0 % (0-2.5); Eosinophils # (Auto) 0.1 Thou/mm3 (0.0-0.5); Eosinophils % (Auto) 1 % (0-10); Hematocrit 24.4 % (36.0-46.0); Immature Granulocytes Auto 0.20 Thou/mm3 (0.00-0.00); Lymphocytes # (Auto) 1.5 Thou/mm3 (1.0-4.8); Lymphocytes % (Auto) 11 % (10-50); Mean Corpuscular HGB Conc 29.5 g/dl (31.0-37.0); Mean Corpuscular Hemoglobin 20.7 pg (25.0-35.0); Mean Corpuscular Volume 70 fL (80-100); Monocytes # (Auto) 0.8 Thou/mm3 (0.0-0.8); Monocytes % (Auto) 5 % (0-12); Neutrophils # (Auto) 11.5 Thou/mm3 (1.8-7.7); Neutrophils % (Auto) 82 % (37-80); Nucleated Red Blood Cell # 0.00 Thou/mm3 (0.00-0.00); Nucleated Red Blood Cell % 0 /100 WBC (0); Platelet Count 753 Thou/mm3 (140-440); RDW Standard Deviation 53.5 fL (36.4-46.3); Red Blood Count 3.48 Miln/mm3 (4.00-5.20); White Blood Count 14.1 Thou/mm3 (3.6-11.0)
[2025-07-27 19:12] LABS: Hemoglobin 7.2 g/dL (12.0-16.0)
[2025-07-27 19:22] LABS: Alanine Aminotransferase 21 U/L (10-49); Albumin, Serum 2.9 gm/dL (3.5-5.0); Albumin/Globulin Ratio 0.6 (1.2-2.2); Alkaline Phosphatase 338 U/L (46-116); Anion Gap 8 (7-16); Aspartate Amino Transferase 26 U/L (0-34); BUN/Creatinine Ratio 35 Ratio (12-20); Bilirubin,Total 0.4 mg/dL (0.3-1.2); Blood Urea Nitrogen 14 mg/dL (9-23); Calcium 8.1 mg/dL (8.3-10.6); Calcium (Corrected) 9.0 mg/dL (8.5-10.1); Carbon Dioxide 26.1 mMol/L (20.0-31.0); Chloride 98 mMol/L (98-107); Creatinine (Component) 0.4 mg/dL (0.6-1.3); Estimated Creatinine Clearance 183.1 mL/min (>60); Globulin 4.7 gm/dL (2.3-3.5); Glucose 89 mg/dL (74-106); Magnesium 1.8 mg/dL (1.6-2.6); Osmolality,Calculated 264 (275-295); Phosphorous 4.6 mg/dL (2.4-5.1); Potassium 4.4 mMol/L (3.4-5.1); Sodium 132 mMol/L (136-145); Total Protein 7.6 gm/dL (5.7-8.2); eGFR > 60 See Note
[2025-07-27 19:34] LABS: LDH (Lactate Dehydrogenase) 168 U/L (120-246); Procalcitonin 0.34 ng/ml (0.0-0.49)
[2025-07-27 20:00] VITALS: PULSE 112
[2025-07-27 20:04] VITALS: PULSE 104; RESP 100; RESP 16
[2025-07-27] MEDS: ONDANSETRON INJ 2 MG/ML INJ 2 ML 4 MG IVP ×2 (20:22→23:15)
[2025-07-27] MEDS: MORPHINE SULF INJ 4 MG/ML VIAL IVP (20:22)
--- NOTE | 2025-07-27 23:02 | XR_ITS ---
Examination: CT pelvis, without contrast. 2-D sagittal reconstructions. 2-D coronal reconstructions. 3-D reconstructions. Date and time of exam: July 28, 2025, 0345 hours INDICATIONS: Large soft tissue infectious focus posterior and lateral to the right hip, posterior to the sacrum, bone destruction T12-L1 on CT scan abdomen pelvis December 01, 2024 CTDI: vol (mGy): 7.77 DLP: (mGycm): 291 Technique: Multiple 1.25 mm axial sections of the 60 cc Isovue-370 have been obtained. 2-D sagittal and coronal reconstructions have been obtained. 3-D reconstructions have been obtained. Low dose protocols were performed. One or more of the following dose reduction techniques were used; automated exposure control, adjustment of the mA and/or KV according to patient size, use of iterative reconstruction technique. Findings: Mild right hydronephrosis Abundant stool in the colon No obstruction Resorption of the left femoral head Again noted large decubitus wounds posterior to the sacrococcygeal region with destruction of lower sacral segments and all coccygeal segments, soft tissue infection extending to the posterior wall of the anus Again noted bilateral decubiti that extend to both ischial tuberosities with osteomyelitis, soft tissue infection surrounding both hips, bone destruction involving the left femoral head No fluid-filled drainable abscess Urinary bladder wall is prominently thickened IMPRESSION: Again noted decubitus wounds posterior to the sacrococcygeal region and posterior to both ischial tuberosities and hips as above with osteomyelitis ischial tuberosities and left hip No drainable soft tissue abscess
[2025-07-27] MEDS: LIDOCAINE JELLY 2% (Urojet) 10 ML TUBE TOP (23:15)
[2025-07-27] MEDS: HYDROmorphone INJ 2 MG/ML VIAL 0.5 MG IVP (23:16)
--- NOTE | 2025-07-27 23:49 | PC.NURSE ---
Pt refused Urinary catheter. provider educated and stressed the need for one, pt pushing staffing away saying dont touch me i dont want a catheter.
[2025-07-27 23:57] VITALS: BP 111/75; PULSE 112; RESP 20; O2SAT 99
[2025-07-28] VITALS (13 sets, daily range): BP systolic 88–110; BP diastolic 59–77; PULSE 85–111; RESP 12–97; TEMP 36.1–37.3; O2SAT 93–100; BMI 20.4
--- NOTE | 2025-07-28 00:22 | PC.NURSE ---
PATIENT ALERT AND IN NO ACUTE DISTRESS, PT REFUSING COPPOLA CARE OR TO BE TURNED AND CLEANED. MULTIPLE DOSES OF PAIN MEDS GIVEN WITH LIDOCAINE JELLY FOR INSERTION OF COPPOLA CATH. PT CUSSING AT STAFF, TELLING US LEAVE ME THE FUCK ALONE , WILL ATTEMPT TO CONTINUE WITH PLAN IF CARE, WAITING FOR POSSIBLE HOSPITAL ADMISSION. COUSIN AT BEDSIDE
[2025-07-28 02:03] LABS: Collection Type, Urine Clean Catch
[2025-07-28 02:13] LABS: Bacteria,Urine Rare; Bilirubin,Urine Negative (Negative); Blood,Urine Negative (Negative); Clarity,Urine Clear (Clear/Hazy); Color,Urine Yellow (Lt Yel-Yel); Glucose, Urine Negative (Negative); Ketones,Urine Negative (Negative); Leukocyte Esterase,Urine Positive (Negative); Nitrite,Urine Negative (Negative); PH,Urine 6.0 (5.0-7.0); Protein,Urine Negative (Neg - Trace); RBC,Urine 1 /hpf (0-3); Specific Gravity,Urine 1.014 (1.001-1.035); Squamous Epithelial Cell,Urine < 1 /hpf (0-5); Urobilinogen,Urine 2.0 mg/dL (0.0-1.0); WBC,Urine 31 /hpf (0-5)
[2025-07-28 02:17] LABS: HCG Qualitative,Urine Negative
[2025-07-28 02:29] LABS: Culture Indicated,Urine Yes
[2025-07-28] MEDS: DIAZEPAM INJ 5 MG/ML VIAL 2 ML 2.5 MG IVP (03:05)
--- NOTE | 2025-07-28 05:27 | PRELIM_ITS ---
CT scan of the pelvis with intravenous contrast (axial sections with sagittal and coronal reformats) July 28, 2025 at 0345 hours Clinical History: History of osteomyelitis rule out interval change. Comparison: No prior study is available for comparison. Findings: Right femoral hardware noted. Chronic dislocation of the left hip joint. Complex left hip joint effusion. Decubitus wound at the level of the sacrum and bilateral ischal tuberosities. Sclerotic changes of the bilateral ischial tuberosities. Sclerotic changes at the level of the sacrum. Fixations hardware noted in the spine. No collections. Madrigal catheter in place. Impression: Decubitus wounds at the level of the sacrum and bilateral ischial tuberosities associated with osteomyelitis. No collections. Report Electronically Signed By: Fer Timmons 07/28/2025 5:27:30 AM [EST]
--- NOTE | 2025-07-28 07:50 | PC.NURSE ---
Pt. wounds are draining fluid that are yellowish and velarde in color, fluid smells very foul, pt. buttocks are a complete wound, wound to buttocks is black in color in a section of the wound, wound above buttocks appears to be tunneling with black around it, pt. refusing to have wound care done.
--- NOTE | 2025-07-28 07:50 | PC.NURSE ---
Pt. here from home to room 12, pt. states Doctors just came and saw her and stated they would admit her and she could eat. Pt. requests 2 sandwiches, juices and chips, all given, pt.'s boyfriend is bedside. No s/s of distress at this time, pt. wounds smell very foul.
[2025-07-28] MEDS: MORPHINE SULF INJ 4 MG/ML VIAL 2 MG IVP (09:48)
--- NOTE | 2025-07-28 09:49 | PC.NURSE ---
Offered to clean pt. and change linen pt. refusing. Spouse trying to get pt. to be cleaned and pt. telling spouse to shut up.
[2025-07-28] MEDS: cefTRIAXone 2 GM in SODIUM CHLORIDE 0.9% (Popper) 50 ML IV (09:55)
--- NOTE | 2025-07-28 10:22 | PD.IDPROG ---
Subjective Subjective Interval history: abx will not heal a du. blount is avoiding pressure Exam Vital Signs Temp Pulse Resp BP Pulse Ox O2 Del Method 99.2 F 104 H 16 104/76 98 Room Air 07/28/25 07:50 07/28/25 07:50 07/28/25 07:50 07/28/25 07:50 07/28/25 07:50 07/28/25 07:50 Narrative Exam await bc and course will see wed formally as pt still in ED Objective - Internal Medicine Labs 07/27/25 18:45 07/27/25 18:45 Labs: Laboratory Results - last 24 hr 07/27/25 07/28/25 18:45 01:52 WBC 14.1 H RBC 3.48 L Hgb 7.2 L Hct 24.4 L MCV 70 L MCH 20.7 L MCHC 29.5 L RDW Std Deviation 53.5 H Plt Count 753 H D Neut % (Auto) 82 H Lymph % (Auto) 11 [place] % (Auto) 5 Eos % (Auto) 1 Baso % (Auto) 0 Neut # (Auto) 11.5 H Lymph # (Auto) 1.5 [place] # (Auto) 0.8 Eos # (Auto) 0.1 Baso # (Auto) 0.0 Immature Gran # (Auto) 0.20 H Absolute Nucleated RBC 0.00 Immature Gran % 1 H Nucleated RBC % 0 Sodium 132 L Potassium 4.4 Chloride 98 Carbon Dioxide 26.1 Anion Gap 8 BUN 14 Creatinine 0.4 L Estim Creat Clear Calc 183.1 eGFR > 60 BUN/Creatinine Ratio 35 H Glucose 89 Calculated Osmolality 264 L Lactic Acid 1.1 Calcium 8.1 L Corrected Calcium 9.0 Phosphorus 4.6 Magnesium 1.8 Total Bilirubin 0.4 AST 26 ALT 21 Alkaline Phosphatase 338 H Lactate Dehydrogenase 168 Total Protein 7.6 Albumin 2.9 L Globulin 4.7 H Albumin/Globulin Ratio 0.6 L Procalcitonin 0.34 Ur Collection Type Clean Catch Urine Color Yellow Urine Clarity Clear Urine pH 6.0 Ur Specific [place] 1.014 Urine Protein Negative Urine Glucose (UA) Negative Urine Ketones Negative Urine Blood Negative Urine Nitrite Negative Urine Bilirubin Negative Urine Urobilinogen (Auto) 2.0 Ur Leukocyte Esterase Positive Urine RBC 1 Urine WBC 31 H Ur Squamous Epith Cells < 1 Urine Bacteria Rare Ur Culture Indicated? Yes Urine HCG, Qual Negative Assessment & Plan A&P Narrative ischial du with osteo on imaging t12 paraplegia with chronic durán will see formally on wed Time Spent With Patient Time: Total time spent is greater than 50% in coordination of care (as documented) at patient's floor/unit and/or counseling patient:
--- NOTE | 2025-07-28 10:40 | PC.NURSE ---
Hasmukh GARCIA from surgery called and stated because pt. ate this morning, Dr. Schafer states pt. will go to OR at 1600 today, pt. aware she is NPO, pt. states she promises not to eat or drink anything else. Anesthesiologist requesting for pt. to have another IV pt. refusing, Hasmukh GARCIA heard pt. refusing and informed Anesthesiologist.
[2025-07-28 10:53] LABS: Basophils # (Auto) 0.0 Thou/mm3 (0.0-0.2); Basophils % (Auto) 0 % (0-2.5); Eosinophils # (Auto) 0.1 Thou/mm3 (0.0-0.5); Eosinophils % (Auto) 1 % (0-10); Hematocrit 23.7 % (36.0-46.0); Immature Granulocytes Auto 0.13 Thou/mm3 (0.00-0.00); Lymphocytes # (Auto) 1.4 Thou/mm3 (1.0-4.8); Lymphocytes % (Auto) 13 % (10-50); Mean Corpuscular HGB Conc 30.0 g/dl (31.0-37.0); Mean Corpuscular Hemoglobin 20.9 pg (25.0-35.0); Mean Corpuscular Volume 70 fL (80-100); Monocytes # (Auto) 0.6 Thou/mm3 (0.0-0.8); Monocytes % (Auto) 6 % (0-12); Neutrophils # (Auto) 8.5 Thou/mm3 (1.8-7.7); Neutrophils % (Auto) 79 % (37-80); Nucleated Red Blood Cell # 0.00 Thou/mm3 (0.00-0.00); Nucleated Red Blood Cell % 0 /100 WBC (0); Platelet Count 718 Thou/mm3 (140-440); RDW Standard Deviation 53.4 fL (36.4-46.3); Red Blood Count 3.39 Miln/mm3 (4.00-5.20); White Blood Count 10.8 Thou/mm3 (3.6-11.0)
[2025-07-28] MEDS: VANCOMYCIN/NS 1 GM IVPB 200 ML IV ×2 (10:56→21:54)
[2025-07-28 11:03] LABS: Hemoglobin 7.1 g/dL (12.0-16.0)
[2025-07-28 11:32] LABS: Alanine Aminotransferase 14 U/L (10-49); Albumin, Serum 2.4 gm/dL (3.5-5.0); Albumin/Globulin Ratio 0.6 (1.2-2.2); Alkaline Phosphatase 285 U/L (46-116); Anion Gap 9 (7-16); Aspartate Amino Transferase 16 U/L (0-34); BUN/Creatinine Ratio 33 Ratio (12-20); Bilirubin,Total 0.2 mg/dL (0.3-1.2); Blood Urea Nitrogen 10 mg/dL (9-23); Calcium 7.7 mg/dL (8.3-10.6); Calcium (Corrected) 9.0 mg/dL (8.5-10.1); Carbon Dioxide 24.9 mMol/L (20.0-31.0); Chloride 103 mMol/L (98-107); Creatinine (Component) 0.3 mg/dL (0.6-1.3); Estimated Creatinine Clearance 244.1 mL/min (>60); Globulin 4.3 gm/dL (2.3-3.5); Glucose 118 mg/dL (74-106); Osmolality,Calculated 273 (275-295); Potassium 4.2 mMol/L (3.4-5.1); Sodium 137 mMol/L (136-145); Total Protein 6.7 gm/dL (5.7-8.2); eGFR > 60 See Note
[2025-07-28 11:40] LABS: Amphetamine/Methamp Scrn,U Positive (Negative); Opiate Screen,Urine Positive (Negative)
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
[2025-07-28] MEDS: RINGERS LACTATED 1000 ML 1,000 ML 125 ML IV (12:58)
--- NOTE | 2025-07-28 17:50 | PD.SUROPNT ---
Date of Procedure 07/28/25 Pre Op Diagnosis Sacral, gluteal and left lower extremity ulcers Post Op Diagnosis Same Procedure Excisional debridement of sacral, left gluteal and left lower extremity ulcers Findings Stage IV sacral decubitus ulcer 6 x 3 x 7 cm with tunneling at the left lateral position Stage IV left gluteal decubitus ulcer 13 x 5 x 1 cm Stage III left lower extremity ulcer 6 x 5 x 1 cm Stage II heel ulcer 3.5 x 3.5 x 0.5 cm Procedure Description After discussion of risks and benefits, patient was brought to the operating room, antibiotics were given and she was placed in right lateral decubitus position with proper padding. Initially we attempted sedation however patient was having pain so she was transition to general anesthesia. She was prepped and draped in the usual sterile fashion. After timeout the sacral decubitus ulcer was first addressed and necrotic tissue was sharply excised with a curette and scissors to the level of bone. Wound was irrigated with Betadine, hydrogen peroxide and saline and hemostasis was achieved with electrocautery and reinforced with Surgicel. The left gluteal ulcer was addressed in the same manner again to the level of bone with a curette and hemostasis was achieved with electrocautery. Both of these wounds were packed with moistened Kerlix and covered with abd which was secured with Medipore tape. The left lower extremity and heel wounds were dressed in the same manner, to the level of muscle and subcutaneous tissue respectively. Hemostasis was achieved with electrocautery and the wounds were covered with Adaptic, fluffs, and abdominal pad and secured with Kerlix. Patient was extubated and brought to PACU in stable condition Pathology / specimen Other (Sacral, left gluteal and left lower extremity necrotic tissue for culture) Estimated Blood Loss 25 Surgeon Argentina Schafer MD Surgical Staff Operation Date: 07/28/25 12:15 Case Staff Anesthesiologist: Ata Montenegro RN First Assistant: Terri Cabello
--- NOTE | 2025-07-28 18:45 | SUR.PHASEI ---
175: pt arrived to PACU via bed drowsy but arouses to voice, breathing unlabored, dressing to sacrum and left heel clean, dry, and intact, report from Tone GARCIA 183: pt tolerating ice chips without difficulty swallowing or n/v 1844: pt awake, alert, able to follow commands, breathing unlabored, dressing to sacrum and left heel clean, dry, and intact, report called to Karina GARCIA, pt transferred to room at this time.
[2025-07-29 01:40] VITALS: BP 111/82; PULSE 94; RESP 17; TEMP 36.1; O2SAT 99
[2025-07-29] MEDS: MORPHINE SULF INJ 4 MG/ML VIAL 2 MG IVP ×2 (01:48→08:10)
[2025-07-29 04:00] VITALS: BP 102/72; PULSE 95; RESP 18; TEMP 36.1; O2SAT 99
[2025-07-29] MEDS: VANCOMYCIN/NS 1 GM IVPB 200 ML IV ×3 (05:30→21:46)
[2025-07-29 06:36] VITALS: PULSE 90; RESP 16; RESP 99
[2025-07-29] MEDS: cefTRIAXone 2 GM in SODIUM CHLORIDE 0.9% (Popper) 50 ML IV (08:09)
[2025-07-29 12:33] VITALS: BMI 20.4
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
[2025-07-29 13:52] LABS: Basophils # (Auto) 0.0 Thou/mm3 (0.0-0.2); Basophils % (Auto) 0 % (0-2.5); Eosinophils # (Auto) 0.0 Thou/mm3 (0.0-0.5); Eosinophils % (Auto) 0 % (0-10); Hematocrit 24.1 % (36.0-46.0); Immature Granulocytes Auto 0.11 Thou/mm3 (0.00-0.00); Immature Reticulocyte Fraction 43.7 % (3.0-15.9); Lymphocytes # (Auto) 1.6 Thou/mm3 (1.0-4.8); Lymphocytes % (Auto) 15 % (10-50); Mean Corpuscular HGB Conc 29.9 g/dl (31.0-37.0); Mean Corpuscular Hemoglobin 20.8 pg (25.0-35.0); Mean Corpuscular Volume 70 fL (80-100); Monocytes # (Auto) 0.4 Thou/mm3 (0.0-0.8); Monocytes % (Auto) 3 % (0-12); Neutrophils # (Auto) 8.1 Thou/mm3 (1.8-7.7); Neutrophils % (Auto) 80 % (37-80); Nucleated Red Blood Cell # 0.00 Thou/mm3 (0.00-0.00); Nucleated Red Blood Cell % 0 /100 WBC (0); Platelet Count 773 Thou/mm3 (140-440); RDW Standard Deviation 54.4 fL (36.4-46.3); Red Blood Count 3.46 Miln/mm3 (4.00-5.20); Reticulocyte % (Auto) 2.0 % (0.5-1.5); Reticulocyte Absolute Auto 67.5 Biln/L (25.0-75.0); Reticulocyte Hgb Content 25.3 pg (28.0-35.0); White Blood Count 10.2 Thou/mm3 (3.6-11.0)
[2025-07-29 13:57] LABS: Sed Rate (ESR) 122 mm/hr (0-20)
[2025-07-29 14:03] LABS: Hemoglobin 7.2 g/dL (12.0-16.0)
[2025-07-29 14:17] LABS: Alanine Aminotransferase 12 U/L (10-49); Albumin, Serum 2.5 gm/dL (3.5-5.0); Albumin/Globulin Ratio 0.6 (1.2-2.2); Alkaline Phosphatase 245 U/L (46-116); Anion Gap 9 (7-16); Aspartate Amino Transferase 17 U/L (0-34); BUN/Creatinine Ratio 40 Ratio (12-20); Bilirubin,Total 0.2 mg/dL (0.3-1.2); Blood Urea Nitrogen 8 mg/dL (9-23); C-Reactive Protein 8.7 mg/dL (0.0-0.9); Calcium 7.8 mg/dL (8.3-10.6); Calcium (Corrected) 9.0 mg/dL (8.5-10.1); Carbon Dioxide 24.3 mMol/L (20.0-31.0); Cardiac Risk Estimate 8.4 RATIO (3.7-5.6); Chloride 104 mMol/L (98-107); Cholesterol 109 mg/dL (132-200); Creatinine (Component) 0.2 mg/dL (0.6-1.3); Estimated Creatinine Clearance 369.2 mL/min (>60); Globulin 4.5 gm/dL (2.3-3.5); Glucose 98 mg/dL (74-106); HDL Cholesterol 13 mg/dL (40-60); LDL Cholesterol,Calculated 74 mg/dL (0-130); Magnesium 1.9 mg/dL (1.6-2.6); Osmolality,Calculated 272 (275-295); Phosphorous 3.8 mg/dL (2.4-5.1); Potassium 4.3 mMol/L (3.4-5.1); Sodium 137 mMol/L (136-145); Total Protein 7.0 gm/dL (5.7-8.2); Triglycerides 108 mg/dL (30-150); Vancomycin,Trough 18.0 mcg/mL (5.0-10.0); eGFR > 60 See Note
[2025-07-29 14:17] LABS: Ferritin 282 ng/mL (7.3-270.7); Iron 17 mcg/dL (50-170); Percent Iron Saturation 10 % (20-55); Total Iron Binding Capacity 165 mcg/dL (250-425); Unsaturated Iron Binding 148 (225-295)
[2025-07-29 16:44] LABS: Path Review Blood Smear Sent to Pathologist
[2025-07-29 19:35] VITALS: PULSE 107; RESP 18; RESP 97
[2025-07-29 20:00] VITALS: BP 108/71; PULSE 104; RESP 17; TEMP 36.1; O2SAT 97
[2025-07-29] MEDS: ASCORBIC ACID 250 MG TABLET 500 MG PO (21:45)
[2025-07-29] MEDS: MORPHINE SULF INJ 4 MG/ML VIAL 1 MG IVP (21:46)
[2025-07-30] VITALS: BP 125/68; PULSE 93; RESP 17; TEMP 36.3; O2SAT 99
--- NOTE | 2025-07-30 04:33 | PC.NURSE ---
Notified Dr Bray regarding patient refusal of morning labs and Vitals signs scheduled at this time, MD Campbelled, care continued.
[2025-07-30] MEDS: VANCOMYCIN/NS 1 GM IVPB 200 ML IV (05:32)
[2025-07-30] MEDS: MORPHINE SULF INJ 4 MG/ML VIAL 1 MG IVP ×2 (05:33→12:10)
[2025-07-30 07:03] VITALS: PULSE 97; RESP 20; RESP 99
[2025-07-30] MEDS: ASCORBIC ACID 250 MG TABLET 500 MG PO (08:28)
[2025-07-30] MEDS: cefTRIAXone 2 GM in SODIUM CHLORIDE 0.9% (Popper) 50 ML IV (08:28)
[2025-07-30] MEDS: MULTIVITAMINS TABLET 1 TAB PO (08:28)
[2025-07-30] MEDS: ZINC SULFATE 220 MG CAPSULE PO (08:28)
[2025-07-30 08:55] LABS: Misc Send Out* See Sep Rpt
--- NOTE | 2025-07-30 09:35 | PC.SS ---
Follow up note: Per physician resident's, pt is refusing labs and vital. On IV antibiotic. Dr. Campa's recommendations pending.
[2025-07-30] MEDS: VANCOMYCIN/NS 750 MG IVPB 750 MG/150 ML BAG 120 MG IV (13:39)
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
--- NOTE | 2025-07-30 15:03 | PC.SS ---
SS met with pt and her boyfriendCosta regarding patient's d/c plan. Pt is alert/oriented. Pt confirmed demographic and contact information is correct on her facesheet. Pt utilizes a wheelchair. Pt transfers into wheelchair with assistance. Pt requires assistance with ADLs. BoyfriendCosta helps care for pt at home. Pt is requesting a new wheelchair. Pt is aware DME request for wheelchair can be submitted but guaranteed. Pt states she has not received wheelchair from her health insurance within 5 years. Pt is also requesting referral to Wound Clinic. SS has submitted referral to Wound Clinic using [facility] and [employer] Fax. SS also also submitted DME order for wheelchair using [facility]. Pt was positive for meth on admission. Pt explained she utilizes fentanyl for pain control which she used 4 days prior to being hospitalized. SS offered community resource list and pt was receptive. Pt followed up with PCP 1 month ago. Pt is aware to continue to follow up with PCP and Wound Clinic. BoyfriendCosta confirmed he will provide transportation home. Pt named her boyfriend, Costa Zhong medical decision maker if she is unable. DC Plan: Return home Next of Kin: Costa Zhong, [email or web address], PCP: [facility]
[2025-07-30 15:20] LABS: Basophils # (Auto) 0.0 Thou/mm3 (0.0-0.2); Basophils % (Auto) 0 % (0-2.5); Eosinophils # (Auto) 0.1 Thou/mm3 (0.0-0.5); Eosinophils % (Auto) 1 % (0-10); Hematocrit 25.7 % (36.0-46.0); Immature Granulocytes Auto 0.17 Thou/mm3 (0.00-0.00); Lymphocytes # (Auto) 1.6 Thou/mm3 (1.0-4.8); Lymphocytes % (Auto) 18 % (10-50); Mean Corpuscular HGB Conc 29.2 g/dl (31.0-37.0); Mean Corpuscular Hemoglobin 20.8 pg (25.0-35.0); Mean Corpuscular Volume 71 fL (80-100); Monocytes # (Auto) 0.5 Thou/mm3 (0.0-0.8); Monocytes % (Auto) 5 % (0-12); Neutrophils # (Auto) 6.7 Thou/mm3 (1.8-7.7); Neutrophils % (Auto) 74 % (37-80); Nucleated Red Blood Cell # 0.00 Thou/mm3 (0.00-0.00); Nucleated Red Blood Cell % 0 /100 WBC (0); Platelet Count 822 Thou/mm3 (140-440); RDW Standard Deviation 57.4 fL (36.4-46.3); Red Blood Count 3.60 Miln/mm3 (4.00-5.20); White Blood Count 9.0 Thou/mm3 (3.6-11.0)
[2025-07-30 15:23] LABS: Hemoglobin 7.5 g/dL (12.0-16.0)
[2025-07-30 15:38] LABS: Alanine Aminotransferase 14 U/L (10-49); Albumin, Serum 2.7 gm/dL (3.5-5.0); Albumin/Globulin Ratio 0.6 (1.2-2.2); Alkaline Phosphatase 218 U/L (46-116); Anion Gap 9 (7-16); Aspartate Amino Transferase 25 U/L (0-34); BUN/Creatinine Ratio 15 Ratio (12-20); Bilirubin,Total < 0.2 mg/dL (0.3-1.2); Blood Urea Nitrogen 6 mg/dL (9-23); Calcium 7.8 mg/dL (8.3-10.6); Calcium (Corrected) 8.8 mg/dL (8.5-10.1); Carbon Dioxide 23.8 mMol/L (20.0-31.0); Chloride 105 mMol/L (98-107); Creatinine (Component) 0.4 mg/dL (0.6-1.3); Estimated Creatinine Clearance 184.6 mL/min (>60); Globulin 4.8 gm/dL (2.3-3.5); Glucose 107 mg/dL (74-106); Osmolality,Calculated 273 (275-295); Potassium 4.3 mMol/L (3.4-5.1); Sodium 138 mMol/L (136-145); Total Protein 7.5 gm/dL (5.7-8.2); eGFR > 60 See Note
--- NOTE | 2025-07-30 16:29 | PC.NURSE ---
pt and caregiver who will be doing wound care at home was given verbal and written instruction and supplies how to care for the wounds. pt and child care center administrator verbalizes understanding how to perform to wound care. pt is educated to follow with wound clinic.
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
== END 2025-07-30 16:30 | disposition home or self-care (01) | DRG 364 ==
LOC: SERX 07-28 06:00 → SERHOLD 07-28 09:59 → S3NX 07-28 11:58
PROVIDERS: Anesthesiology; Surgery; Admitting Provider Student in an Organized Health Care Education/Training Program; Emergency Provider Emergency Medicine; Visit Provider Student in an Organized Health Care Education/Training Program
PROC: 0QB10ZZ Excision of Sacrum, Open Approach (ICD-10-PCS; principal; 2025-07-28 12:00)
DX: L89.154 Pressure ulcer of sacral region, stage 4 (principal); G82.20 Paraplegia, unspecified; L89.324 Pressure ulcer of left buttock, stage 4; M46.28 Osteomyelitis of vertebra, sacral and sacrococcygeal region; I95.9 Hypotension, unspecified; B96.1 Klebsiella pneumoniae [K. pneumoniae] as the cause of diseases classified elsewhere; L97.425 Non-pressure chronic ulcer of left heel and midfoot with muscle involvement without evidence of necrosis; F10.10 Alcohol abuse, uncomplicated; L97.825 Non-pressure chronic ulcer of other part of left lower leg with muscle involvement without evidence of necrosis; M86.8X8 Other osteomyelitis, other site; G89.21 Chronic pain due to trauma; D50.9 Iron deficiency anemia, unspecified; L08.9 Local infection of the skin and subcutaneous tissue, unspecified; N39.498 Other specified urinary incontinence; I10 Essential (primary) hypertension; D75.839 Thrombocytosis, unspecified; Z88.2 Allergy status to sulfonamides; N13.30 Unspecified hydronephrosis
CPT/HCPCS: 36415; 72193; 80053; 80061; 80202; 80307; 81001; 81025; 82728; 83036; 83540; 83550; 83605; 83615; 83735; 84100; 84145; 85025; 85046; 85652; 86140; 86850; 86900; 86901; 87040; 87070; 87075; 87077; 87086; 87186; 87205; 93005; 96365; 96366; 96375; 96376; 99285; A4217; A4649; J0131; J0694; J0696; J1100; J1171; J1644; J1885; J2250; J2270; J2371; J2405; J2543; J2704; J3010; J3360; J3370; J3373; J3490; J7030; J7050; J7120; Q9967; A9270

== ENCOUNTER 2025-09-17 09:38 | Emergency (ER) | payer MEDICAID, SELFPAY ==
[2025-09-17 09:50] VITALS: BP 110/72; PULSE 118; RESP 18; TEMP 36.9; O2SAT 99; BMI 19.5
--- NOTE | 2025-09-17 11:20 | PC.NURSE ---
applied waffle mattress due to pt chronic wounds to coccyx area. and pt is paraplegic.
[2025-09-17 11:29] LABS: Lactate (Lactic Acid) 1.9 mMol/L (0.4-2.0)
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
[2025-09-17 11:43] LABS: Basophils # (Auto) 0.1 Thou/mm3 (0.0-0.2); Basophils % (Auto) 0 % (0-2.5); Eosinophils # (Auto) 0.3 Thou/mm3 (0.0-0.5); Eosinophils % (Auto) 2 % (0-10); Hematocrit 28.9 % (36.0-46.0); Immature Granulocytes Auto 0.03 Thou/mm3 (0.00-0.00); Lymphocytes # (Auto) 1.9 Thou/mm3 (1.0-4.8); Lymphocytes % (Auto) 17 % (10-50); Mean Corpuscular HGB Conc 29.1 g/dl (31.0-37.0); Mean Corpuscular Hemoglobin 20.4 pg (25.0-35.0); Mean Corpuscular Volume 70 fL (80-100); Monocytes # (Auto) 0.6 Thou/mm3 (0.0-0.8); Monocytes % (Auto) 5 % (0-12); Neutrophils # (Auto) 8.7 Thou/mm3 (1.8-7.7); Neutrophils % (Auto) 76 % (37-80); Nucleated Red Blood Cell # 0.00 Thou/mm3 (0.00-0.00); Nucleated Red Blood Cell % 0 /100 WBC (0); Platelet Count 843 Thou/mm3 (140-440); RDW Standard Deviation 48.4 fL (36.4-46.3); Red Blood Count 4.12 Miln/mm3 (4.00-5.20); White Blood Count 11.6 Thou/mm3 (3.6-11.0)
[2025-09-17 11:59] LABS: Hemoglobin 8.4 g/dL (12.0-16.0)
[2025-09-17 12:05] LABS: Alanine Aminotransferase 13 U/L (10-49); Albumin, Serum 3.6 gm/dL (3.5-5.0); Albumin/Globulin Ratio 0.6 (1.2-2.2); Alkaline Phosphatase 233 U/L (46-116); Anion Gap 11 (7-16); Aspartate Amino Transferase 19 U/L (0-34); BUN/Creatinine Ratio 44 Ratio (12-20); Bilirubin,Total 0.3 mg/dL (0.3-1.2); Blood Urea Nitrogen 22 mg/dL (9-23); Calcium 8.5 mg/dL (8.3-10.6); Calcium (Corrected) 8.8 mg/dL (8.5-10.1); Carbon Dioxide 23.4 mMol/L (20.0-31.0); Chloride 99 mMol/L (98-107); Creatinine (Component) 0.5 mg/dL (0.6-1.3); Estimated Creatinine Clearance 141.9 mL/min (>60); Globulin 5.8 gm/dL (2.3-3.5); Glucose 117 mg/dL (74-106); Osmolality,Calculated 270 (275-295); Potassium 3.2 mMol/L (3.4-5.1); Procalcitonin 0.41 ng/ml (0.0-0.49); Sodium 133 mMol/L (136-145); Total Protein 9.4 gm/dL (5.7-8.2); eGFR > 60 See Note
[2025-09-17 13:02] VITALS: BP 106/66; PULSE 105; RESP 16; TEMP 36.9; O2SAT 100
[2025-09-17] MEDS: LIDOCAINE JELLY 2% (Urojet) 10 ML TUBE TOP (13:43)
[2025-09-17 15:25] LABS: Collection Type, Urine Clean Catch
[2025-09-17 15:33] LABS: HCG Qualitative,Urine Negative
[2025-09-17 15:40] LABS: Amphetamine/Methamp Scrn,U Positive (Negative); Barbiturate Screen,Urine Negative (Negative); Benzodiazepines Screen,Urine Negative (Negative); Benzoylecgonine Screen, Ur Negative (Negative); Fentanyl Screen,Urine Positive (Negative); Opiate Screen,Urine Negative (Negative); THC Screen,Urine Negative (Negative)
[2025-09-17 15:42] LABS: Bacteria,Urine Rare; Bilirubin,Urine Negative (Negative); Blood,Urine 1+ (Negative); Color,Urine Yellow (Lt Yel-Yel); Glucose, Urine Negative (Negative); Hyaline Casts,Urine < 1 /hpf (0-1); Ketones,Urine Negative (Negative); Leukocyte Esterase,Urine Positive (Negative); Nitrite,Urine Negative (Negative); PH,Urine 6.5 (5.0-7.0); Protein,Urine 2+ (Neg - Trace); RBC,Urine 50 /hpf (0-3); Specific Gravity,Urine 1.027 (1.001-1.035); Squamous Epithelial Cell,Urine < 1 /hpf (0-5); Urobilinogen,Urine Negative mg/dL (0.0-1.0); WBC,Urine 177 /hpf (0-5)
[2025-09-17 15:45] LABS: Clarity,Urine Hazy (Clear/Hazy)
[2025-09-17 18:25] VITALS: BP 115/79; PULSE 116; RESP 18; TEMP 37; O2SAT 100
[2025-09-17 19:58] VITALS: BP 118/72; PULSE 100; RESP 18; TEMP 36.8; O2SAT 98
== END 2025-09-17 20:25 | disposition home or self-care (01) ==
PROVIDERS: Nurse Practitioner Primary Care; Emergency Provider Emergency Medicine; PCP Physician Assistant
DX: T83.511A Infection and inflammatory reaction due to indwelling urethral catheter, initial encounter (principal); N39.0 Urinary tract infection, site not specified; Y84.6 Urinary catheterization as the cause of abnormal reaction of the patient, or of later complication, without mention of misadventure at the time of the procedure
CPT/HCPCS: 36415; 51702; 80053; 80307; 81001; 81025; 83605; 84145; 85025; 87040; 87077; 87086; 87186; 96365; 96366; 99283; A4314; J1580; J7050

== ENCOUNTER 2025-09-18 17:00 | Emergency (ER) | payer MEDICAID, SELFPAY ==
[2025-09-18 17:00] VITALS: BMI 20.3
[2025-09-18 17:21] VITALS: BP 125/82; PULSE 95; RESP 18; TEMP 36.6; O2SAT 100
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
[2025-09-18] MEDS: LIDOCAINE HCL 1% 20 ML VIAL 2.1 ML INFL (17:45)
[2025-09-18] MEDS: cefTRIAXone SOD INJ 1,000 MG VIAL 1000 MG IM (17:45)
== END 2025-09-18 18:04 | disposition home or self-care (01) ==
LOC: SERX 18:00
PROVIDERS: Emergency Provider Family Medicine
DX: T83.511A Infection and inflammatory reaction due to indwelling urethral catheter, initial encounter (principal); N39.0 Urinary tract infection, site not specified; Y84.6 Urinary catheterization as the cause of abnormal reaction of the patient, or of later complication, without mention of misadventure at the time of the procedure
CPT/HCPCS: 96372; 99282; J0696; J3490

== ENCOUNTER 2025-09-23 15:50 | Emergency (ER) | payer MEDICAID, SELFPAY ==
[2025-09-23] VITALS (15 sets, daily range): BP systolic 95–114; BP diastolic 60–82; PULSE 102–130; RESP 18–20; TEMP 36.7–37; O2SAT 99–100; BMI 20.3
--- NOTE | 2025-09-23 16:04 | EKG_ITS ---
[facility] Test Date: 2025-09-23 Pat Name: ALISHA ALEMAN Department: Room: - Gender: Female [employer] In[employer]: : 1990 Requested By: Jeff Chavez Order Number: [id number] Reading MD: Jeff Chavez Measurements Intervals [place] Rate: 120 P: 35 MS: 108 QRS: 61 QRSD: 85 T: 56 QT: 293 QTc: 414 Interpretive Statements SINUS TACHYCARDIA WITH SHORT MS INTERVAL ABNORMAL RHYTHM ECG Compared to ECG 07/27/2025 18:52:33 No significant changes /store/S0/[id number].pdf
--- NOTE | 2025-09-23 16:06 | PD.EDRME ---
Rapid Medical Screening Exam RME Arrival date/time: 09/23/25 15:50 Chief Complaint: Medical Clearance Vital signs: Vital Signs Temperature 98.2 F 09/23/25 15:54 Pulse Rate 126 H 09/23/25 15:54 Respiratory Rate 20 09/23/25 15:54 Blood Pressure 114/82 09/23/25 15:54 Pulse Oximetry (%) 99 09/23/25 15:54 Oxygen Delivery Method Room Air 09/23/25 15:54 RME Narrative: 35-year-old female with history of paraplegia with sacral decubitus ulcers, presents for medical retirement clearance today. She states that she was here 4 days ago and her sacral decubitus ulcerations need to be repacked. She has been seen here frequently in the emergency room in the past. Exam: Patient is paraplegic and pending bed availability to examine the patient's decubitus ulcerations Clinical Impression: Paraplegia with sacral decubitus ulcerations by history with possible drug abuse
[2025-09-23] MEDS: SODIUM CHLORIDE 0.9% 1000 ML 1,000 ML 999 ML IV ×2 (16:48→20:00)
[2025-09-23 16:57] LABS: Lactate (Lactic Acid) 2.9 mMol/L (0.4-2.0)
[2025-09-23 17:04] LABS: Basophils # (Auto) 0.1 Thou/mm3 (0.0-0.2); Basophils % (Auto) 1 % (0-2.5); Eosinophils # (Auto) 0.2 Thou/mm3 (0.0-0.5); Eosinophils % (Auto) 3 % (0-10); Hematocrit 30.2 % (36.0-46.0); Hemoglobin 8.6 g/dL (12.0-16.0); Immature Granulocytes Auto 0.03 Thou/mm3 (0.00-0.00); Lymphocytes # (Auto) 2.0 Thou/mm3 (1.0-4.8); Lymphocytes % (Auto) 25 % (10-50); Mean Corpuscular HGB Conc 28.5 g/dl (31.0-37.0); Mean Corpuscular Hemoglobin 20.1 pg (25.0-35.0); Mean Corpuscular Volume 71 fL (80-100); Monocytes # (Auto) 0.6 Thou/mm3 (0.0-0.8); Monocytes % (Auto) 7 % (0-12); Neutrophils # (Auto) 5.1 Thou/mm3 (1.8-7.7); Neutrophils % (Auto) 64 % (37-80); Nucleated Red Blood Cell # 0.00 Thou/mm3 (0.00-0.00); Nucleated Red Blood Cell % 0 /100 WBC (0); Platelet Count 876 Thou/mm3 (140-440); RDW Standard Deviation 49.9 fL (36.4-46.3); Red Blood Count 4.27 Miln/mm3 (4.00-5.20); White Blood Count 8.0 Thou/mm3 (3.6-11.0)
[2025-09-23 17:28] LABS: Alanine Aminotransferase 22 U/L (10-49); Albumin, Serum 3.4 gm/dL (3.5-5.0); Albumin/Globulin Ratio 0.6 (1.2-2.2); Alkaline Phosphatase 341 U/L (46-116); Anion Gap 12 (7-16); Aspartate Amino Transferase 45 U/L (0-34); BUN/Creatinine Ratio 25 Ratio (12-20); Beta HCG,Quantitative 1 mIU/mL (<5.0); Bilirubin,Total < 0.2 mg/dL (0.3-1.2); Blood Urea Nitrogen 15 mg/dL (9-23); Calcium 8.4 mg/dL (8.3-10.6); Calcium (Corrected) 8.9 mg/dL (8.5-10.1); Carbon Dioxide 24.4 mMol/L (20.0-31.0); Chloride 104 mMol/L (98-107); Creatinine (Component) 0.6 mg/dL (0.6-1.3); Estimated Creatinine Clearance 123.0 mL/min (>60); Globulin 5.7 gm/dL (2.3-3.5); Glucose 71 mg/dL (74-106); Osmolality,Calculated 278 (275-295); Potassium 4.1 mMol/L (3.4-5.1); Sodium 140 mMol/L (136-145); Total Protein 9.1 gm/dL (5.7-8.2); eGFR > 60 See Note
[2025-09-23 19:21] LABS: Collection Type, Urine Voided; Squamous Epithelial Cell,Urine 0 /hpf (0-5)
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
[2025-09-23 19:29] LABS: Bacteria,Urine Rare; Bilirubin,Urine Negative (Negative); Blood,Urine Trace (Negative); Clarity,Urine Turbid (Clear/Hazy); Color,Urine Lt-Yellow (Lt Yel-Yel); Glucose, Urine Negative (Negative); Hyaline Casts,Urine < 1 /hpf (0-1); Ketones,Urine Negative (Negative); Leukocyte Esterase,Urine Positive (Negative); Nitrite,Urine Negative (Negative); PH,Urine 6.5 (5.0-7.0); Protein,Urine Trace (Neg - Trace); RBC,Urine 12 /hpf (0-3); Specific Gravity,Urine 1.011 (1.001-1.035); Urobilinogen,Urine Negative mg/dL (0.0-1.0); WBC,Urine 143 /hpf (0-5)
[2025-09-23 19:44] LABS: Amphetamine/Methamp Scrn,U Positive (Negative); Barbiturate Screen,Urine Negative (Negative); Benzodiazepines Screen,Urine Negative (Negative); Benzoylecgonine Screen, Ur Negative (Negative); Fentanyl Screen,Urine Positive (Negative); Opiate Screen,Urine Negative (Negative); THC Screen,Urine Negative (Negative)
--- NOTE | 2025-09-23 19:48 | XR_ITS ---
EXAMINATION: AP chest single view TECHNIQUE: AP portable semiupright chest single view Date and time: September 23, 2025, 1952 hours, comparison June 25, 2025 INDICATIONS: Shortness of breath today. FINDINGS: Normal heart size No pneumonia or pulmonary edema. Partial visualization thoracolumbar stabilization rods IMPRESSION: No active disease
--- NOTE | 2025-09-23 19:49 | XR_ITS ---
Examination: CT abdomen with intravenous contrast CT pelvis with intravenous contrast 2-D coronal reconstructions 2-D sagittal reconstructions Date and time of exam: September 23, 2025, 10:53 p.m, comparison CT pelvis July 28, 2025 INDICATIONS: History sacral wounds with erythema edema and tenderness, chronic, decubitus wounds posterior to the sacrococcygeal region posterior to both ischial tuberosities and hips with osteomyelitis ischial tuberosities and left hip on CT examination July 28, 2025. CTDI: vol (mGy) 8.34 DLP: (mGycm) 462 Technique: Multiple axial sections of the abdomen and pelvis have been obtained. 64 slice high-resolution scanner used. 3 mm axial sections have been obtained, post intravenous injection 60 cc [id number] 2-D sagittal, coronal reconstructions obtained. Low dose protocols were performed. One or more of the following dose reduction techniques were used; automated exposure control, adjustment of the mA and/or KV according to patient size, use of iterative reconstruction technique. Findings: No visualized liver or splenic lesion Distended gallbladder No pancreatic mass Mild right hydronephrosis No bowel obstruction Again noted large soft tissue defect posterior to the sacrococcygeal region, similar in size, with bone destruction of the lower sacral segments and all coccygeal segments, no fluid drainable abscess at this site The infection extends to the posterior wall of the urinary bladder There is bone destruction involving the posterior margin L2 and inferior margin L1 consistent with osteomyelitis discitis There are bilateral soft tissue ulcer defects in the buttock regions, on the right side extending to the right ischial tuberosity with osteomyelitis right ischium and bone destruction involving the right femoral head and right acetabulum The large ulcer defect again noted in the left buttock region destroying the posterior left iliac bone and dense sclerosis/osteomyelitis left ischium Axial image 234 on this study is suspicious for early cortical erosion involving the left femoral head IMPRESSION: Again noted large soft tissue defect posterior to the sacrococcygeal region with bone destruction lower sacral segments and all coccygeal segments, the infection extending to the posterior wall of the urinary bladder Osteomyelitis discitis L1-L2 level Again noted soft tissue defects right buttock region extending to the right ischial tuberosity, osteomyelitis right ischium and bone destruction involving the right femoral head and right acetabulum Again noted large soft tissue defect left buttock region destroying the posterior left iliac bone, osteomyelitis left ischium, on this study suspicious for erosion involving the left femoral head
[2025-09-23 19:57] LABS: Reflex Lactate? Y
[2025-09-23] MEDS: CEFEPIME INJ 2 GM in SODIUM CHLORIDE 0.9% (Popper) 50 ML IV (20:12)
[2025-09-23 20:17] LABS: Base Excess, Venous 1 (-3-3); O2 Saturation, Venous 88 % (96-97); PCO2, Venous 36 mmHg (36-56); PO2, Venous 54 mmHg (15-58); pH, Venous 7.45 (7.33-7.66)
[2025-09-23 20:21] LABS: Lactic Acid, 3 HR 1.2 mMol/L (0.4-2.0)
[2025-09-23 20:23] LABS: Beta Hydroxybutyrate 0.0 mmol/L (<0.6)
[2025-09-23 20:30] LABS: Sed Rate (ESR) 114 mm/hr (0-20)
[2025-09-23 20:38] LABS: B-Type Natriuretic Peptide 36 pg/mL (0-100)
[2025-09-23 20:38] LABS: Glucose Estimated Average 88 mg/dL (80-131); Hemoglobin A1C 4.7 % Hgb (4.8-6.0)
[2025-09-23 20:49] LABS: Alcohol, Blood Medical < 3.0 mg/dL (0-10.0); Bilirubin,Direct < 0.1 mg/dL (0.0-0.3); C-Reactive Protein 3.6 mg/dL (0.0-0.9); Creatine Kinase 54 U/L (34-171); Lipase 25 U/L (12-53); Magnesium 2.0 mg/dL (1.6-2.6); Procalcitonin 0.05 ng/ml (0.0-0.49); Thyroid Stimulating Hormone 1.18 uIU/mL (0.55-4.78)
[2025-09-23] MEDS: Vancomycin Inj 2,000 MG in SODIUM CHLORIDE 0.9% 500 ML 500 ML 150 MG IV (23:19)
[2025-09-23] MEDS: KETOROLAC INJ 30 MG/ML VIAL IVP (23:30)
[2025-09-24] VITALS (8 sets, daily range): BP systolic 103–120; BP diastolic 69–79; PULSE 101–117; RESP 15–40; TEMP 36.6–37; O2SAT 98–100
--- NOTE | 2025-09-24 04:27 | PC.NURSE ---
CASE PRESENTED TO MARYJANE- DUE TO ADMITTING MD STATING NEURO SURGERY WAS NEEDED DUE TO OSTEOMYELITIS IN SPINAL REGION. MARYJANE STATED ALL SPECIALTIES STATED THIS WOULD BE A LATERAL TRANSFER DUE TO PT NEEDING ORTHO, WOUND DEBRIDEMENT, AND ANTIBIOTICS. THEY STATES NO NEURO SURGERY NEEDED. AND LATERAL TRANSFER DUE TO US HAVING ORTHO AVAILABLE. MD PINEDA MADE AWARE.
[2025-09-24] MEDS: DEXTROSE 5%-NS 1,000 ML 250 ML IV (04:31)
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
[2025-09-24] MEDS: KETOROLAC INJ 30 MG/ML VIAL IVP (08:01)
--- NOTE | 2025-09-24 08:06 | PC.NURSE ---
PER DR. ESCAMILLA PATIENT WILL BE DISCHARGED. PATIENT IN AGREEMENT WITH PLAN
--- NOTE | 2025-09-24 08:55 | PC.SS ---
SS was informed by Charge nurse, that patient needed transportation back home. [facility] however patient was not found in the system. SS contacted [facility] transportation and they reported the soonest time they have available will be for 12PM. SS verbalized understanding and updated patient's nurse, Elina.
== END 2025-09-24 12:35 | disposition home or self-care (01) ==
PROVIDERS: Emergency Medicine; Emergency Provider Emergency Medicine; PCP Physician Assistant
DX: Z02.89 Encounter for other administrative examinations (principal); M86.69 Other chronic osteomyelitis, multiple sites; M46.46 Discitis, unspecified, lumbar region; L89.154 Pressure ulcer of sacral region, stage 4; N39.0 Urinary tract infection, site not specified; D64.9 Anemia, unspecified; E16.2 Hypoglycemia, unspecified; F15.90 Other stimulant use, unspecified, uncomplicated; F11.20 Opioid dependence, uncomplicated; G82.20 Paraplegia, unspecified; R06.02 Shortness of breath; R00.0 Tachycardia, unspecified
CPT/HCPCS: 36415; 71045; 74177; 80053; 80307; 80320; 81001; 82010; 82248; 82550; 82803; 83036; 83605; 83690; 83735; 83880; 84145; 84443; 84702; 85025; 85652; 86140; 87040; 93005; 96361; 96365; 96366; 96375; 99284; A4649; J0692; J1885; J3373; J7030; J7042; J7050; J7999; Q9967; G0480